=== PATIENT | female | born 1960 | race Caucasian/White ===

== ENCOUNTER → 2020-11-16 10:44 | Outpatient (BNVA) | payer SELFPAY | PROVIDERS: Family Provider Nurse Practitioner Family; PCP Nurse Practitioner Family; Visit Provider Nurse Practitioner Family | DX: S69.91XA Unspecified injury of right wrist, hand and finger(s), initial encounter (principal); E11.65 Type 2 diabetes mellitus with hyperglycemia; E78.5 Hyperlipidemia, unspecified; J30.2 Other seasonal allergic rhinitis; I10 Essential (primary) hypertension; X58.XXXA Exposure to other specified factors, initial encounter | CPT/HCPCS: 73130 ==

== ENCOUNTER 2020-12-21 14:53 | Outpatient (CLI) | payer SELFPAY ==
--- NOTE | 2020-12-21 15:01 | XR_ITS ---
WS: [id number] Right hand, 3 views, 12/21/2020 Clinical Data: R HAND PAIN Comparison: Right hand, 11/16/2020. Findings: The right second and third finger show partial amputation. Only the proximal two thirds of the right-sided finger proximal phalanx remains. The base of the right third middle phalanx remains. As osteoarthritic changes of the right fourth knee IP joint with flexion deformity. The remainder of the hand shows no abnormalities. No new fractures or dislocations are seen. The soft tissues are norm al. XR/XR hand RT min 3V* [id number] Impression: 1. 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 2. 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
== END 2020-12-21 14:54 | disposition home or self-care (01) ==
LOC: RAD 14:59
PROVIDERS: PCP Nurse Practitioner Family; Visit Provider Orthopaedic Surgery
DX: M79.641 Pain in right hand (principal); Z89.021 Acquired absence of right finger(s); M19.041 Primary osteoarthritis, right hand
CPT/HCPCS: 73130

== ENCOUNTER 2021-06-25 08:52 | Outpatient (CLI) | payer SELFPAY ==
--- NOTE | 2021-06-25 09:30 | USCV_ITS ---
Bridgett Cantor Age: 60 Gender: F : 1960 Exam Date: 06/25/2021 09:03 Ordering Phys: Jose R Mathews MD ([email or web address]) Technologist: ERICKA Exam Location: [facility] [place] Indication: DYSPNEA BP: 124 / 79 HR: 96 Rhythm: Sinus Technical Quality: Technically difficult study MEASUREMENTS (Male / Female) Normal Values 2D ECHO RV Chamber Size 2.7 cm LVOT Diameter 2.0 cm LA Diameter 2.2 cm LA Width 3.4 cm LA Height 2.8 cm RA Width 3.3 cm RA Height 3.2 cm Aorta at Sinotubular Diameter 2.2 cm M-MODE Aortic Annulus Diameter 2.6 cm LA Ao Ratio MM 0.9 DOPPLER AV Peak Velocity 81.0 cm/s LVOT Peak Velocity 57.0 cm/s AV Area Cont Eq vti 2.5 cm squared AV Area Cont Eq pk 2.2 cm squared TR Peak Velocity 220.0 cm/s TR Peak Gradient 19.4 mmHg TV Peak E Velocity 50.0 cm/s Right Atrial Pressure 3.0 mmHg Pulmonary Artery Systolic Pressu 22.4 mmHg PV Peak Velocity 76.0 cm/s RV Acceleration Time 0.1 s RV Ejection Time 0.3 s RV AcT/ET 0.4 FINDINGS Left Ventricle Normal left ventricular cavity size. Normal left ventricular systolic function. Left ventricular ejection fraction is estimated at 55-60 %. Although no diagnostic regional wall motion abnormality could be identified, this possibility cannot be completely excluded. Abnormal septal motion. Right Ventricle Normal right ventricular size and systolic function. Right Atrium Right atrium not well visualized. Left Atrium Left atrium not well visualized. Probably normal left atrial size. Mitral Valve Mitral valve not well visualized. No mitral valve stenosis. No significant mitral valve regurgitation. Aortic Valve Aortic valve not well visualized. No aortic valve stenosis. Tricuspid Valve Tricuspid valve not well visualized. Pulmonic Valve Pulmonic valve not well visualized. Pericardium No pericardial effusion. Aorta Normal size aortic root. CONCLUSIONS 1. This is a technically difficult study. 2. Normal left ventricular cavity size and systolic function. Left ventricular ejection fraction is estimated at 55- 60 %. Although no diagnostic regional wall motion abnormality could be identified, this possibility cannot be completely excluded. Abnormal septal motion. 3. Repeat study with echo contrast is recoomended. 4. No prior similar studies to compare. Taya Sánchez MD (Electronically Signed) Final Date: 28 June 2021 09:46 S
== END 2021-06-25 08:53 | disposition home or self-care (01) ==
LOC: RAD 08:56
PROVIDERS: PCP Nurse Practitioner Family; Visit Provider Internal Medicine Cardiovascular Disease
DX: R06.00 Dyspnea, unspecified (principal); R07.89 Other chest pain
CPT/HCPCS: 93306

== ENCOUNTER → 2022-10-15 13:50 | Outpatient (BNVA) | payer SELFPAY | PROVIDERS: PCP Nurse Practitioner Family; Visit Provider Internal Medicine Cardiovascular Disease | DX: R00.2 Palpitations (principal); E78.5 Hyperlipidemia, unspecified; I10 Essential (primary) hypertension; S69.91XA Unspecified injury of right wrist, hand and finger(s), initial encounter; E11.65 Type 2 diabetes mellitus with hyperglycemia; X58.XXXA Exposure to other specified factors, initial encounter | CPT/HCPCS: 93005 ==

== ENCOUNTER 2023-05-06 14:29 | Outpatient (CLI) | payer SELFPAY ==
--- NOTE | 2023-05-06 14:45 | USCV_ITS ---
Bridgett Cantor Age: 62 Gender: F : 1960 Exam Date: 05/06/2023 14:50 Ordering Phys: Vinita Mcdonough PILE HEADER PILE HEADER Technologist: CT [place] [facility] [place]: swelling PROCEDURES: Venous duplex imaging was performed in only the right lower extremity. On the right side, the common femoral, superficial femoral, profunda femoral, popliteal, posterior tibial, greater saphenous veins and the peroneal trunk were identified and interrogated in the standard fashion. These veins were found to be easily compressible with spontaneous blood flow. No evidence of insufficiency or thrombus noted. FINDINGS: no dvt CONCLUSIONS No evidence of right lower extremity DVT. Hong Pettit MD (Electronically Signed) Final Date: 06 May 2023 16:28 S
== END 2023-05-06 14:30 | disposition home or self-care (01) ==
LOC: RAD 14:30
PROVIDERS: PCP Nurse Practitioner Family; Visit Provider Nurse Practitioner Family
DX: M79.604 Pain in right leg (principal)
CPT/HCPCS: 93971

== ENCOUNTER → 2023-05-29 18:14 | Outpatient (BNVA) | payer SELFPAY | PROVIDERS: PCP Nurse Practitioner Family; Visit Provider Family Medicine | DX: R31.0 Gross hematuria (principal) | CPT/HCPCS: 81003; 87086 ==

== ENCOUNTER → 2023-12-01 08:59 | Outpatient (BNVA) | payer MEDICAID, SELFPAY | PROVIDERS: PCP Nurse Practitioner Family; Visit Provider Nurse Practitioner Family | DX: E11.65 Type 2 diabetes mellitus with hyperglycemia (principal) | CPT/HCPCS: 80053; 80061; 82043; 82607; 83036; 83735; 84443; 85025 ==

== ENCOUNTER 2024-01-09 13:32 | Outpatient (CLI) | payer MEDICAID, SELFPAY ==
--- NOTE | 2024-01-09 14:00 | USCV_ITS ---
Bridgett Cantor Age: 63 Gender: F : 1960 Exam Date: 01/09/2024 13:39 Ordering Phys: Vinita Mcdonough OCCUPATIONAL THERAPY PROFESSOR Technologist: UMBERTO Exam Location: [facility] Indication: HISTORY: PROCEDURES: FINDINGS: The small saphenous vein on the left side was found to be dilated with echodensities in the lumen. The vein was found to be partially compressible. Small venous reflux was noted in the distal segment of the greater saphenous vein on the left side. The reflux time was 0.68 seconds. The vein segment was measuring 0.44 cm and at a depth of 0.88 ms centimeter. Common femoral, femoral, popliteal and the posterior tibial veins were found to be patent with a spontaneous blood flow. CONCLUSIONS 1. No evidence of DVT in the way above-mentioned identifiable veins. 2. Features of superficial vein thrombosis involving the small saphenous vein of the left side causing partial occlusion. 3. Significant venous reflux of greater than 500 ms(680 ms) was noted in the distal segment of the greater saphenous vein on the left side. However this segment was less than 1 cm deep from the surface. 4. No other significant venous reflux were noted in the other veins Dr Jose R Mathews MD [facility] (Electronically Signed) Final Date: 15 January 2024 07:54 S
== END 2024-01-09 13:33 | disposition home or self-care (01) ==
LOC: RAD 13:33
PROVIDERS: PCP Nurse Practitioner Family; Visit Provider Nurse Practitioner Family
DX: R60.0 Localized edema (principal); I87.2 Venous insufficiency (chronic) (peripheral)
CPT/HCPCS: 93971

== ENCOUNTER 2024-01-13 11:57 | Outpatient (CLI) | payer MEDICAID, SELFPAY ==
--- NOTE | 2024-01-13 12:15 | USCV_ITS ---
Bridgett Cantor Age: 63 Gender: F : 1960 Exam Date: 01/13/2024 12:12 Ordering Phys: Vinita Mcdonough PROTECTIVE CLOTHING ISSUER PROTECTIVE CLOTHING ISSUER Technologist: JU Exam Location: [facility] [place] Indication: RASH ANT LOWER LT LEG DM AND NON SMOKER Risk Factors: DM Previous Vascular Surgery: None RIGHT LEFT BP: 131.0 / 68.00 BP: 138.0/ 73.00 0 0 Waveform Velocity (cm/s) Velocity (cm/s) Waveform Iliac Prox 127.0 Biphasic Iliac Mid Biphasic 79.0 Iliac Distal 74.0 Biphasic E COMMERCE MARKETING ANALYST 84.0 Monophasic SFA Prox 73.0 Monophasic SFA Mid 133.0 Monophasic SFA Dist 103.0 Monophasic POP Monophasic 294.0 SPIKEMAKING SUPERVISOR 36.0 Monophasic DPA 19.0 Monophasic MAN 0.8 FINDINGS LT SPIKEMAKING SUPERVISOR 110 LT DPA 90 Resting MAN of 0.8 on the left side Elevated Doppler velocity of the left popliteal artery CONCLUSIONS 1. Abnormal resting MAN, suggestive of moderate peripheral artery disease on the left side. 2. Elevated Doppler velocity in the popliteal artery, suggestive of greater than 50% stenosis. Dr Jose R Mathews MD [facility] (Electronically Signed) Final Date: 14 January 2024 00:13 S
== END 2024-01-13 11:58 | disposition home or self-care (01) ==
LOC: RAD 11:57
PROVIDERS: PCP Nurse Practitioner Family; Visit Provider Nurse Practitioner Family
DX: I87.2 Venous insufficiency (chronic) (peripheral) (principal); R94.39 Abnormal result of other cardiovascular function study
CPT/HCPCS: 80053; 80061; 82043; 82607; 83036; 83735; 84443; 85025; 93926

== ENCOUNTER 2024-01-23 13:22 | Outpatient (CLI) | payer MEDICAID, SELFPAY ==
--- NOTE | 2024-01-23 13:36 | XR_ITS ---
WS: [id number] XR KUB [id number] REASON FOR EXAM: URETERAL EVAL FINDINGS: No free air or retroperitoneal air. Moderate amount of stool throughout the colon. No small bowel distention. No urinary tract calculi are identified. Moderate degenerative spondylosis in the lumbar spine. Moderate osteoarthritis in both hips. XR/XR KUB [id number] IMPRESSION: No acute abnormality. No urinary tract calculi.
--- NOTE | 2024-01-23 14:36 | US_ITS ---
WS: [id number] RENAL ULTRASOUND HISTORY: NEPHROLITHIASIS COMPARISON: None available. TECHNIQUE: 2-D and color Doppler imaging of the kidney submitted. Right kidney: 10.8 cm x 5.3 cm x 5.3 cm. Cortex: 1.0 cm Normal size kidney. Soft tissue thickening involving the superior pole measures 2.4 x 1.8 x 2.4 cm. R enal cell neoplasm needs to be excluded. Left kidney: 11.9 cm x 4.6 cm x 5.1 cm. Cortex: 1.0 cm Normal echogenicity with no hydronephrosis or mass. Aorta: Normal. Urinary Bladder: Normal distention. US/US renal BI* [id number] IMPRESSION: 1. No hydronephrosis. 2. Possible renal mass measures 2.4 x 1.8 x 2.4 cm versus pseudotumor. Recomme nd follow-up renal mass CT protocol.
== END 2024-01-23 13:23 | disposition home or self-care (01) ==
PROVIDERS: PCP Nurse Practitioner Family; Visit Provider Urology
DX: N20.0 Calculus of kidney (principal); M47.816 Spondylosis without myelopathy or radiculopathy, lumbar region; M16.0 Bilateral primary osteoarthritis of hip
CPT/HCPCS: 74018; 76770

== ENCOUNTER → 2024-03-02 14:57 | Outpatient (BNVA) | payer MEDICAID, SELFPAY | PROVIDERS: PCP Nurse Practitioner Family; Visit Provider Nurse Practitioner Family | DX: S81.801A Unspecified open wound, right lower leg, initial encounter (principal); E11.65 Type 2 diabetes mellitus with hyperglycemia; X58.XXXA Exposure to other specified factors, initial encounter | CPT/HCPCS: 80053; 80061; 81000; 82607; 83036; 85025; 87070; 87075; 87205 ==

== ENCOUNTER 2024-03-10 16:57 | Outpatient (CLI) | payer MEDICAID, SELFPAY ==
--- NOTE | 2024-03-10 17:15 | CTR_ITS ---
PROCEDURE INFORMATION: Exam: CT Abdomen And Pelvis Without And With Contrast Exam date and time: 03/10/2024 6:22 PM Age: 63 years old Clinical indication: Abdominal pain; Generalized; Prior surgery; Surgery date: 6+ months; Surgery type: Gb, stent, kidney stone; Additional info: R10.9 - unspecified abdominal pain TECHNIQUE: Imaging protocol: Computed tomography of the abdomen and pelvis without and with contrast. Radiation optimization: All CT scans at this facility use at least one of these dose optimization techniques: automated exposure control; mA and/or kV adjustment per patient size (includes targeted exams where dose is matched to clinical indication); or iterative reconstruction. Contrast material: OMNIPAQUE 350; Contrast volume: 100 ml; Contrast route: INTRAVENOUS (IV); COMPARISON: CR XR KUB [id number] 01/23/2024 1:44 PM RADIATION DOSE METRICS: Total DLP (mGy-cm): 1248.47 FINDINGS: Liver: Normal. No mass. Gallbladder and biliary ducts: There has been a cholecystectomy. Pancreas: Normal. No ductal dilation. Spleen: Normal. No splenomegaly. Adrenal glands: Normal. No mass. Kidneys and ureters: There is mild right hydroureteronephrosis. No obstructing ureteral mass or calcification. Stomach and bowel: Colonic diverticula are present although there are no CT findings to suggest diverticulitis. No bowel obstruction. Appendix: The appendix is visualized and appears normal. Intraperitoneal space: Unremarkable. No free air. No significant fluid collection. Vasculature: Unremarkable. No abdominal aortic aneurysm. Lymph nodes: Unremarkable. No enlarged lymph nodes. Urinary bladder: Unremarkable as visualized. Reproductive: Unremarkable as visualized. Bones/joints: Degenerative change is identified in the spine. There is no evidence for acute fracture or malalignment. Soft tissues: Unremarkable. CT/CT abdomen pelvis wo/w [id number] IMPRESSION: There is mild right hydroureteronephrosis which may be secondary to a recently passed stone versus pyelonephritis.Clinical correlation is advised.
[2024-03-10 18:23] LABS: Glomerular Filtration Rate 41.6 mL/min (90-130)
[2024-03-10] MEDS: iohexol 350 mg/mL 500 mL Btl (per mL) IV (18:29)
== END 2024-03-10 16:58 | disposition home or self-care (01) ==
LOC: RAD 16:58
PROVIDERS: PCP Nurse Practitioner Family; Visit Provider Nurse Practitioner Family
DX: N13.30 Unspecified hydronephrosis (principal); R10.9 Unspecified abdominal pain; R31.9 Hematuria, unspecified; N28.89 Other specified disorders of kidney and ureter; Z90.49 Acquired absence of other specified parts of digestive tract
CPT/HCPCS: 74178; 82565; 84520

== ENCOUNTER → 2024-03-16 10:59 | Outpatient (BNVA) | payer MEDICAID, SELFPAY | PROVIDERS: PCP Nurse Practitioner Family; Visit Provider Nurse Practitioner Family | DX: D72.829 Elevated white blood cell count, unspecified (principal) | CPT/HCPCS: 85025 ==

== ENCOUNTER → 2024-04-01 13:18 | Outpatient (BNVA) | payer MEDICAID, SELFPAY | PROVIDERS: PCP Nurse Practitioner Family; Visit Provider Nurse Practitioner Family | DX: D72.829 Elevated white blood cell count, unspecified (principal); N18.32 Chronic kidney disease, stage 3b | CPT/HCPCS: 82565; 85025 ==

== ENCOUNTER → 2024-04-14 15:41 | Outpatient (BNVA) | payer MEDICAID, SELFPAY | PROVIDERS: PCP Nurse Practitioner Family; Visit Provider Nurse Practitioner Family | DX: L03.116 Cellulitis of left lower limb (principal) | CPT/HCPCS: 87070; 87075; 87205 ==

== ENCOUNTER 2024-06-11 06:50 | Outpatient (CLI) | payer MEDICAID, SELFPAY ==
[2024-06-11 07:17] LABS: Basophils # 0.1 10^3/uL (0.0-0.1); Basophils % 0.6 %; Eosinophils # 0.4 10^3/uL (0.0-0.8); Hematocrit 41.1 % (36-47); Lymphocytes # 2.7 10^3/uL (0.8-4.8); Lymphocytes % 28.6 %; Mean Corpuscular HGB Conc 31.9 g/dL (30-55); Mean Corpuscular Hemoglobin 29.8 pg (27-33); Mean Corpuscular Volume 93.4 fl (85-98); Mean Platelet Volume 10.9 fL (7.4-10.4); Monocytes # 0.8 10^3/uL (0.2-0.9); Neutrophils # 5.36 10^3/uL (1.8-7.7); Neutrophils % 57.5 %; Nucleated Red Blood Cells % 0.2 %; Platelet Count 159 10^3/cmm (157-399); Red Cell Distribution Width 14.7 % (12.1-15.1); White Blood Count 9.33 10^3/uL (3.29-11.43)
[2024-06-11 07:34] LABS: Anion Gap 16.2 (5-19); Blood Urea Nitrogen 27 mg/dL (8-23); Calcium 9.5 mg/dL (8.5-10.5); Carbon Dioxide 25 mmol/L (22-29); Chloride 105 mmol/L (98-107); Glomerular Filtration Rate 41.6 mL/min (90-130); Glucose 125 mg/dL (65-115); Osmolality Calculated 301 mOsm/kg (285-295); Potassium 4.2 mmol/L (3.5-5.1); Sodium 142 mmol/L (136-145)
== END 2024-06-11 06:51 | disposition home or self-care (01) ==
PROVIDERS: PCP Nurse Practitioner Family; Referring Provider Thoracic Surgery (Cardiothoracic Vascular Surgery); Visit Provider Thoracic Surgery (Cardiothoracic Vascular Surgery)
DX: E11.65 Type 2 diabetes mellitus with hyperglycemia (principal); E11.622 Type 2 diabetes mellitus with other skin ulcer; L98.499 Non-pressure chronic ulcer of skin of other sites with unspecified severity
CPT/HCPCS: 36415; 80048; 85025

== ENCOUNTER 2024-06-11 09:03 | Outpatient (CLI) | payer MEDICAID, SELFPAY ==
--- NOTE | 2024-06-11 09:15 | CT_ITS ---
WS: [id number] CT ANGIOGRAPHY OF THE ABDOMINAL AORTA WITH RUNOFF TO THE ANKLES HISTORY: Decreased blood flow to LLE TECHNIQUE: Arterial injection is performed during imaging to evaluate the aorta and runoff vessels to the ankles. MIP and volume rendering imaging has also been performed. All images are reviewed. All C T scans at [facility] use at least one of these dose optimization techniques: automated exposu re control; mA and/or kV adjustment per patient size (includes targeted exams where dose is matched t o clinical indication); or iterative reconstruction. Contrast: Omnipaque 350; 100 mL IV. DLP: 1592.03 mGy.cm COMPARISON: None available. Abdominal aorta: Good opacification abdominal aorta. There is scattered plaque with no aneurysm. Good opacification of the mesenteric arteries although there are foci of plaque. Normal size main renal a rteries. Tiny accessory renal arteries are also present. Inferior mesenteric artery is patent. RIGHT lower extremity: Calcified plaque continues into the RIGHT common iliac artery. Stenosis less t gutierrez 50%. Internal and external iliac arteries are both patent with greater plaque in the internal juan carlos ac artery. Multifocal areas of stenosis common iliac artery. High-grade stenosis of 70%. SFA and deep profundus are intact with scattered calcification. No occlusion through the popliteal artery. 50% st enosis mid SFA. 60% stenosis distal SFA. Tibioperoneal trunk is patent. Scattered plaque and small ca liber runoff to the ankles. Poorly visualized peroneal artery at the ankle. Best runoff to the ankle is via the posterior tibial artery. LEFT lower extremity: Dense calcified plaque common iliac artery. High-grade stenosis proximal LEFT i nternal iliac artery. External iliac artery is patent. Less than 50% stenosis common femoral artery. Proximal deep profunda and SFA are intact. Beginning in the proximal SFA there is multifocal areas of stenosis due to scattered calcified plaque. Mid SFA stenosis estimated at 70%. There is several area s of stenosis estimated near 70%. Additional stenoses towards the distal SFA through Aristeo's canal. Near complete occlusion of the distal SFA just proximal to the popliteal artery. Three-vessel runoff to the ankle is limited. Poor visualization of the peroneal and anterior tibial arteries. Best runoff is via the posterior tibial artery. Calcified granuloma medial LEFT lower lobe. Small hiatal hernia. Prior cholecystectomy. Cirrhotic corine er. No adrenal mass. No renal obstruction. Mild diffuse cortical thinning. No GI tract obstruction. N o ascites or adenopathy. L4 anterolisthesis by [address]/CT angio abd aorta runof [id number] IMPRESSION: 1. No aortic aneurysm. 2. RIGHT femoral artery stenosis, 70%. 3. Mid RIGHT SFA stenoses from 50 to 60%, multifocal. 4. LEFT SFA multifocal stenoses. Mid SFA stenosis 70% with near complete occlu leigh in distal Aristeo's canal. 5. Bilateral three-vessel runoff to the ankles is noted. Small caliber vessels . Most limited runoff is via the peroneal arteries. Best runoff via the posteri or tibial arteries. 6. Prior cholecystectomy. 7. Cirrhotic liver.
[2024-06-11] MEDS: iohexol 350 mg/mL 500 mL Btl (per mL) IV (10:39)
== END 2024-06-11 09:04 | disposition home or self-care (01) ==
PROVIDERS: PCP Nurse Practitioner Family; Visit Provider Thoracic Surgery (Cardiothoracic Vascular Surgery)
DX: E11.622 Type 2 diabetes mellitus with other skin ulcer (principal); L98.499 Non-pressure chronic ulcer of skin of other sites with unspecified severity; E11.65 Type 2 diabetes mellitus with hyperglycemia; I73.9 Peripheral vascular disease, unspecified; I70.8 Atherosclerosis of other arteries; Z90.49 Acquired absence of other specified parts of digestive tract; I70.0 Atherosclerosis of aorta; J84.10 Pulmonary fibrosis, unspecified; K44.9 Diaphragmatic hernia without obstruction or gangrene; R93.2 Abnormal findings on diagnostic imaging of liver and biliary tract; R93.7 Abnormal findings on diagnostic imaging of other parts of musculoskeletal system; R93.89 Abnormal findings on diagnostic imaging of other specified body structures
CPT/HCPCS: 75635

== ENCOUNTER 2024-07-11 12:07 | Emergency (ER) | payer MEDICAID, SELFPAY ==
[2024-07-11 12:45] VITALS: BP 141/73; PULSE 96; RESP 18; TEMP 36.7; O2SAT 96; BMI 31.9
--- NOTE | 2024-07-11 13:14 | CTR_ITS ---
PROCEDURE INFORMATION: Exam: CT Abdomen And Pelvis Without Contrast Exam date and time: 07/11/2024 1:46 PM Age: 63 years old Clinical indication: Abdominal pain; Prior surgery; Surgery date: 6+ months; Surgery type: Gb kidney stone; Additional info: Flank pain TECHNIQUE: Imaging protocol: Computed tomography of the abdomen and pelvis without contrast. Radiation optimization: All CT scans at this facility use at least one of these dose optimization techniques: automated exposure control; mA and/or kV adjustment per patient size (includes targeted exams where dose is matched to clinical indication); or iterative reconstruction. COMPARISON: CT abdomen pelvis wo/w [id number] 03/10/2024 6:22 PM RADIATION DOSE METRICS: Total DLP (mGy-cm): 797.13 FINDINGS: Lungs: Calcified granulomas in the left lower lobe. Liver: There are calcified granulomas in the liver. Gallbladder and biliary ducts: There has been a cholecystectomy. Pancreas: Normal. No ductal dilation. Spleen: There are multiple calcified granulomas of the spleen. Adrenal glands: Normal. No mass. Kidneys and ureters: 2 mm nonobstructing stone in the interpolar region of the left kidney. Moderate right hydroureteronephrosis. No obstructing urinary stone. There is no evidence of left hydronephrosis. Stomach and bowel: Unremarkable. No obstruction. No mucosal thickening. Appendix: No evidence of appendicitis. Intraperitoneal space: Unremarkable. No free air. No significant fluid collection. Vasculature: There are numerous benign phleboliths in the pelvis. Calcified atheromas of the visualized arteries. Lymph nodes: Unremarkable. No enlarged lymph nodes. Urinary bladder: Unremarkable as visualized. Reproductive: Unremarkable as visualized. Bones/joints: There are mild degenerative changes of the hip joints. The pubic symphysis demonstrates mild degenerative changes. There are mild degenerative changes of the sacroiliac joints. Bilateral L4-L5 facet joint arthropathy with mild anterolisthesis of L4 over L5. The lumbar spine demonstrates moderate degenerative changes at multiple levels. Soft tissues: Unremarkable. CT/CT abdomen pelvis wo con [id number] IMPRESSION: 1. No obstructing urinary stone. 2. Moderate right hydroureteronephrosis that might be related to recent passage of stone.
--- NOTE | 2024-07-11 13:44 | W.ED.BACK ---
HPI - Back Pain/Injury General: Chief Complaint: Back Pain/Injury Stated Complaint: side pain Time Seen by Provider: 07/11/24 13:09 History of Present Illness: 63-year-old female with a recent history of a large kidney stone that required lithotripsy and stent placement which has since been removed who presents emergency room today with flank pain. She is having right flank pain. Has not noticed any blood in her urine. She has urinary frequency and urgency with decreased urinary output. No fevers. No nausea or vomiting. No altered mental status. Related Data Home Medications ?Medication ?Instructions ?Recorded ?Confirmed aspirin 81 mg tablet,delayed 81 mg PO DAILY 05/20/19 07/11/24 release acetaminophen 500 mg capsule 500 mg PO Q6H PRN Pain 12/04/21 07/11/24 allopurinol 300 mg tablet 300 mg PO BID 07/11/24 07/11/24 atorvastatin 40 mg tablet 40 mg PO DAILY 07/11/24 07/11/24 benazepril 20 mg tablet 20 mg PO DAILY 07/11/24 07/11/24 bupropion HCl 150 mg 24 hr tablet, 150 mg PO QAM 07/11/24 07/11/24 extended release dapagliflozin propanediol 10 mg 10 mg PO QAM 07/11/24 07/11/24 tablet dulaglutide 0.75 mg/0.5 mL 0.75 mg SUBCUT Q7D 07/11/24 07/11/24 subcutaneous pen injector (Trulicity) glipizide 10 mg tablet, extended 10 mg PO DAILY 07/11/24 07/11/24 release 24 hr insulin glargine 100 unit/mL (3 45 unit SUBCUT BID 07/11/24 07/11/24 mL) subcutaneous pen (Lantus Solostar U-100 Insulin) loratadine 10 mg tablet 10 mg PO DAILY 07/11/24 07/11/24 Previous Rx's ?Medication ?Instructions ?Recorded mecobalamin (vitamin B12) 1,000 See Rx Instructions .Route 03/04/24 mcg disintegrating .COMPLEX #90 tabs tablet,sublingual metoprolol tartrate 50 mg tablet 75 mg (1.5 x 50 mg) PO BID #270 06/28/24 tabs ciprofloxacin HCl 500 mg tablet 500 mg PO BID 10 days #20 tabs 03/02/25 ondansetron 4 mg disintegrating 4 mg PO Q8H PRN nausea and 07/11/24 tablet vomiting #10 tabs Allergies Allergy/AdvReac Type Severity Reaction Status Date / Time Cephalosporins Allergy Unknown Verified 06/28/24 18:13 hydrochlorothiazide Allergy ALGY-Rash Verified 06/28/24 18:13 Review of Systems Narrative: Constitutional symptoms: Negative except as documented in HPI. Skin symptoms: Negative except as documented in HPI. Eye symptoms: Negative except as documented in HPI. ENMT symptoms: Negative except as documented in HPI. Respiratory symptoms: Negative except as documented in HPI. Cardiovascular symptoms: Negative except as documented in HPI. Gastrointestinal symptoms: Negative except as documented in HPI. Genitourinary symptoms: Negative except as documented in HPI. Musculoskeletal symptoms: Negative except as documented in HPI. Neurologic symptoms: Negative except as documented in HPI. Psychiatric symptoms: Negative except as documented in HPI. Endocrine symptoms: Negative except as documented in HPI. PFSH ED PFSH: Medical History Gout Current use of insulin Poor compliance Stage 4 chronic kidney disease Anxiety state Uncontrolled type 2 diabetes mellitus with hyperglycemia Hyperlipidemia Hypertension Surgical History History of amputation of finger History of cholecystectomy Family History Mother Anesthesia complication Diabetes Lung disease Father Clotting disorder Diabetes Stroke Sister CAD (coronary artery disease) later in life Cancer Diabetes Lung disease Stroke Brother CAD (coronary artery disease) Chronic kidney disease (CKD) Diabetes Other Hypertension Denies family history of Dementia Suicide Bleeding disorder Social History Smoking and tobacco/nicotine status: former use of tobacco/nicotine Quit status (tobacco/nicotine): has quit using Year quit tobacco: over 20 years ago Second hand smoke exposure: No Alcohol intake: never Substance/Drug Use: never Caregiver/support person: Yes Lives independently: Yes Household members: spouse Marital status: service: No Current occupational status: disabled Current gender identity: Female Special luca needs: No Physical Exam Narrative: EXAM NARRATIVE: General: Alert, no acute distress. Skin: Warm, dry. Head: Normocephalic, atraumatic. Neck: Supple, trachea midline. Eye: Extraocular movements are intact. Ears, nose, mouth and throat: Tacky oral mucosa Cardiovascular: Regular, Normal peripheral perfusion. Respiratory: Lungs are clear to auscultation, respirations are non-labored, breath sounds are equal, Symmetrical chest wall expansion. Gastrointestinal: Soft, Nontender, Non distended Musculoskeletal: Normal ROM, no deformity. Neurological: Alert and oriented, No focal neurological deficit observed. Psychiatric: Cooperative, appropriate mood & affect. Course Vital Signs: Vital signs: Vital Signs Temperature 98.0 F 07/11/24 12:45 Pulse Rate 96 07/11/24 12:45 Respiratory Rate 18 07/11/24 12:45 Blood Pressure 141/73 07/11/24 12:45 Pulse Oximetry 96 07/11/24 12:45 Oxygen Delivery Me thod Room Air 07/11/24 12:45 MDM - Back Pain/Injury Medical Decision Making Medical decision making: Differential diagnosis including but not limited to and based on the above HPI, review of systems and physical exam: Ureterolithiasis. Urinary tract infection. Appendicitis. Cholecystis. Musculoskeletal / back pain. Pyelonephritis Orders placed to evaluate differential diagnosis based on the above differential, HPI and physical exam Lab Review: Laboratory results were reviewed and interpreted by myself the emergency room physician. Mild leukocytosis. No anemia. Renal function is at or near her baseline at 28 1.4. Slightly more elevated. Urinalysis shows very concentrated urine and 25-40 whites. Treating her flank pain as a urinary tract infection/pyelonephritis. She has a cephalosporin allergy so giving Cipro here in the emergency room. CT of the abdomen pelvis: No obstructing urinary stones. She does have moderate right hydronephrosis. This is likely secondary to previous stone and stent placement. This was reviewed and interpreted by myself the emergency room physician. I also reviewed the radiology report. I reviewed the patient's medical record. Reexamination: Patient remained stable. No increased work of breathing. No altered mental status. No focal motor deficits. Assessment and plan: Urinary tract infection Flank pain Dehydration ? Normal saline bolus, IV Cipro, IV morphine and IV Zofran. - Discharged home - Discussed plan with patient. Answered any questions. - Evaluation and treatment of this problem were appropriate in the emergency setting. Labs 07/11/24 13:45 07/11/24 13:45 Radiology Impressions Abdomen/Pelvis CT 07/11/24 13:14 IMPRESSION: 1. No obstructing urinary stone. 2. Moderate right hydroureteronephrosis that might be related to recent passage of stone. Laboratory Results WBC 13.12 10^3/uL (3.29-11.43) H 07/11/24 13:45 RBC 4.57 10^6/uL (3.85-5.65) 07/11/24 13:45 Hgb 13.80 g/dL (11.27-16.99) 07/11/24 13:45 Hct 43.7 % (36-47) 07/11/24 13:45 MCV 95.6 fl (85-98) 07/11/24 13:45 MCH 30.2 pg (27-33) 07/11/24 13:45 MCHC 31.6 g/dL (30-55) 07/11/24 13:45 RDW 15.2 % (12.1-15.1) H 07/11/24 13:45 Plt Count 173 10^3/cmm (157-399) 07/11/24 13:45 MPV 11.4 fL (7.4-10.4) H 07/11/24 13:45 Neut % (Auto) 85.0 % 07/11/24 13:45 Lymph % (Auto) 8.8 % 07/11/24 13:45 [place] % (Auto) 5.0 % 07/11/24 13:45 Eos % (Auto) 0.2 % 07/11/24 13:45 Baso % (Auto) 0.5 % 07/11/24 13:45 Neut # (Auto) 11.15 10^3/uL (1.8-7.7) H 07/11/24 13:45 Lymph # (Auto) 1.2 10^3/uL (0.8-4.8) 07/11/24 13:45 [place] # (Auto) 0.7 10^3/uL (0.2-0.9) 07/11/24 13:45 Eos # (Auto) 0.0 10^3/uL (0.0-0.8) 07/11/24 13:45 Baso # (Auto) 0.1 10^3/uL (0.0-0.1) 07/11/24 13:45 Nucleated RBC % (auto) 0 % 07/11/24 13:45 Nucleated RBCs # 0.0 /100WBC 07/11/24 13:45 Sodium 139 mmol/L (136-145) 07/11/24 13:45 Potassium 5.0 mmol/L (3.5-5.1) 07/11/24 13:45 Chloride 106 mmol/L (98-107) 07/11/24 13:45 Carbon Dioxide 24 mmol/L (22-29) 07/11/24 13:45 Anion Gap 14.0 (5-19) 07/11/24 13:45 BUN 28 mg/dL (8-23) H 07/11/24 13:45 Creatinine 1.4 mg/dL (0.5-0.9) H 07/11/24 13:45 GFR Calculation 38.2 mL/min (90-130) L 07/11/24 13:45 Glucose 221 mg/dL (65-115) H 07/11/24 13:45 Calculated Osmolality 300 mOsm/kg (285-295) H 07/11/24 13:45 Calcium 9.6 mg/dL (8.5-10.5) 07/11/24 13:45 Total Bilirubin 0.7 mg/dL (0.15-1.2) 07/11/24 13:45 AST 20 U/L (0-32) 07/11/24 13:45 ALT 19 U/L (0-33) 07/11/24 13:45 Alkaline Phosphatase 145 U/L (35-105) H 07/11/24 13:45 Total Protein 7.4 g/dL (6.6-8.7) 07/11/24 13:45 Albumin 3.8 g/dL (3.5-5.2) 07/11/24 13:45 Globulin 3.6 g/dL (1.3-4.6) 07/11/24 13:45 Lipase 53 U/L (13-60) 07/11/24 13:45 Urine Color Yellow (Yellow) 07/11/24 14:17 Urine Appearance Clear (CLEAR) 07/11/24 14:17 Urine pH 5.0 (5-7) 07/11/24 14:17 Ur Specific [place] 1.030 (1.005-1.030) 07/11/24 14:17 Urine Protein Negative (Negative) 07/11/24 14:17 Urine Glucose (UA) 3+ (Normal) H 07/11/24 14:17 Urine Ketones Negative (Negative) 07/11/24 14:17 Urine Blood 1+ (Negative) A 07/11/24 14:17 Urine Nitrate Negative (Negative) 07/11/24 14:17 Urine Bilirubin Negative (Negative) 07/11/24 14:17 Urine Urobilinogen 0.2 mg/dL (Negative) 07/11/24 14:17 Ur Leukocyte Esterase Trace (Negative) A 07/11/24 14:17 Urine RBC 0-4 /hpf (0-2) H 07/11/24 14:17 Urine WBC 25-40 /hpf (0-5) H 07/11/24 14:17 Ur Squamous Epith Cells 5-10 /hpf (0-5) H 07/11/24 14:17 Calcium Oxalate Crystal 0-4 /hpf H 07/11/24 14:17 Amorphous Sediment Not Reportable 07/11/24 14:17 Urine Bacteria Trace /hpf (NONE) 07/11/24 14:17 All radiology interpretation(s) finalized by discharge Discharge Plan Discharge Patient Disposition: Home Clinical Impression: Hydronephrosis, Dehydration UTI (urinary tract infection) Qualifiers: Urinary tract infection type: site unspecified Hematuria presence: with hematuria Qualified Code(s): N39.0 - Urinary tract infection, site not specified Condition: Stable Prescriptions: New ciprofloxacin HCl 500 mg tablet 500 mg PO BID 10 Days Qty: 20 0RF ondansetron 4 mg tablet,disintegrating 4 mg PO Q8H PRN (Reason: nausea and vomiting) Qty: 10 0RF No Action aspirin 81 mg tablet,delayed release (DR/EC) 81 mg PO DAILY metoprolol tartrate 50 mg tablet 75 mg PO BID Qty: 270 3RF acetaminophen 500 mg capsule 500 mg PO Q6H PRN (Reason: Pain) mecobalamin (vitamin B12) 1,000 mcg tablet,disintegrating See Rx Instructions .ROUTE .COMPLEX Qty: 90 1RF Dose Instruction: place tablet UNDER TONGUE and allow TO dissolve FOR at least 30 seconds before swallowing take ONCE daily Rx Instructions: place tablet UNDER TONGUE and allow TO dissolve FOR at least 30 seconds before swallowing take ONCE daily atorvastatin 40 mg tablet 40 mg PO DAILY Rx Instructions: TAKE ONE TABLET BY MOUTH DAILY glipizide 10 mg tablet extended release 24hr 10 mg PO DAILY Rx Instructions: TAKE ONE TABLET BY MOUTH DAILY benazepril 20 mg tablet 20 mg PO DAILY Rx Instructions: TAKE ONE TABLET BY MOUTH EVERY DAY allopurinol 300 mg tablet 300 mg PO BID Rx Instructions: TAKE ONE TABLET BY MOUTH TWICE DAILY loratadine 10 mg tablet 10 mg PO DAILY Rx Instructions: TAKE ONE TABLET BY MOUTH EVERY DAY bupropion HCl 150 mg tablet extended release 24 hr 150 mg PO QAM Rx Instructions: TAKE ONE TABLET BY MOUTH EVERY MORNING insulin glargine [Lantus Solostar U-100 Insulin] 100 unit/mL (3 mL) insulin pen 45 unit SUBCUT BID Rx Instructions: INJECT 45 UNITS SUBCUTANEOUSLY TWICE DAILY dapagliflozin propanediol 10 mg tablet 10 mg PO QAM Rx Instructions: TAKE ONE TABLET BY MOUTH EVERY MORNING Trulicity 0.75 mg/0.5 mL pen injector 0.75 mg SUBCUT Q7D Rx Instructions: inject 0.75mg SUBCUTANEOUSLY ONCE WEEKLY Discharge Orders: Discharge ED (Routine); Ordered 07/11/24 Ordered By: Ines Varner Referrals: Vinita Mcdonough FNP [Primary Care Provider] - Discharge Diet: Usual diet Discharge Activity: Increase activity as tolerated Patient Instructions: Opioid Safety, Pain Management Activity Restrictions/Additional Instructions: You need to follow-up with your primary care provider very soon, and perhaps discussed with him if you need to follow-up with urology again for persistent hydronephrosis after the last kidney stone. If you do not improve or worsen with the antibiotics that you are on go see your primary care provider or return to the emergency room. Thank you for choosing [facility] for your healthcare needs today. Please realize this is an emergency room and that we are providing you with a medical screening exam and this may not be complete and all inclusive of all the testing and or work up that you may need to determine your ailment or severity of your illness. You have been screened and evaluated and felt safe for discharge. Health conditions do change or evolve sometimes and as such it is important that you follow up with your Primary Doctor to be re checked, 3-5 days is a general good time frame for follow up. You are always welcome to return to the ED for re assessment if your symptoms are worsening or you have new concerns Print Language: Kittitian Coding Level of Care Code ED Kennel Staff Member for Raza Sen
[2024-07-11 13:51] LABS: Basophils # 0.1 10^3/uL (0.0-0.1); Basophils % 0.5 %; Eosinophils % 0.2 %; Hematocrit 43.7 % (36-47); Lymphocytes # 1.2 10^3/uL (0.8-4.8); Lymphocytes % 8.8 %; Mean Corpuscular HGB Conc 31.6 g/dL (30-55); Mean Corpuscular Hemoglobin 30.2 pg (27-33); Mean Corpuscular Volume 95.6 fl (85-98); Mean Platelet Volume 11.4 fL (7.4-10.4); Monocytes # 0.7 10^3/uL (0.2-0.9); Neutrophils # 11.15 10^3/uL (1.8-7.7); Nucleated Red Blood Cells % 0 %; Platelet Count 173 10^3/cmm (157-399); Red Blood Count 4.57 10^6/uL (3.85-5.65); Red Cell Distribution Width 15.2 % (12.1-15.1); White Blood Count 13.12 10^3/uL (3.29-11.43)
[2024-07-11 14:13] LABS: Alanine Aminotransferase 19 U/L (0-33); Albumin Level 3.8 g/dL (3.5-5.2); Alkaline Phosphatase 145 U/L (35-105); Aspartate Amino Transferase 20 U/L (0-32); Blood Urea Nitrogen 28 mg/dL (8-23); Calcium 9.6 mg/dL (8.5-10.5); Carbon Dioxide 24 mmol/L (22-29); Chloride 106 mmol/L (98-107); Creatinine Clr Calc Pharmacy 45.9898; Globulin 3.6 g/dL (1.3-4.6); Glomerular Filtration Rate 38.2 mL/min (90-130); Glucose 221 mg/dL (65-115); Lipase 53 U/L (13-60); Osmolality Calculated 300 mOsm/kg (285-295); Sodium 139 mmol/L (136-145); Total Bilirubin 0.7 mg/dL (0.15-1.2); Total Protein 7.4 g/dL (6.6-8.7)
[2024-07-11 14:17] VITALS: BP 162/80; PULSE 96; O2SAT 96
[2024-07-11 14:27] LABS: Bilirubin Urine Negative (Negative); Blood Urine 1+ (Negative); Glucose Urine UA 3+ (Normal); Ketones Urine Negative (Negative); Leukocyte Esterase Urine Trace (Negative); Nitrate Urine Negative (Negative); Protein Urine Negative (Negative); Urine Appearance Clear (CLEAR); Urine Color Yellow (Yellow); Urobilinogen Urine 0.2 mg/dL (Negative)
[2024-07-11 14:45] LABS: Add Urine Microscopic? YES; Bacteria Urine TRACE /hpf; Calcium Oxalate Crystals Urine 0-4 /hpf; RBC Urine 0-4 /hpf (0-2); WBC Urine 25-40 /hpf (0-5)
[2024-07-11 15:30] VITALS: BP 127/86; PULSE 97; O2SAT 98
[2024-07-11] MEDS: sodium chloride 0.9% 1,000 ML 999 ML IV (16:02)
[2024-07-11] MEDS: ondansetron 2 mg/ML SDV 2 mL 4 MG IVP (16:03)
[2024-07-11 16:04] VITALS: RESP 16; O2SAT 96
[2024-07-11] MEDS: morphine 4 mg/mL SDV 1 mL IVP (16:04)
[2024-07-11] MEDS: ciprofloxacin 400 MG/200 ML PREMIX 200 MG IV (16:06)
[2024-07-11 17:13] VITALS: BP 147/77; PULSE 104; O2SAT 91
== END 2024-07-11 17:13 | disposition home or self-care (01) ==
PROVIDERS: Emergency Medicine; Emergency Provider Emergency Medicine; PCP Nurse Practitioner Family
DX: N13.30 Unspecified hydronephrosis (principal); E86.0 Dehydration; N39.0 Urinary tract infection, site not specified; Z79.82 Long term (current) use of aspirin; Z79.4 Long term (current) use of insulin; Z87.891 Personal history of nicotine dependence; E78.5 Hyperlipidemia, unspecified; E11.22 Type 2 diabetes mellitus with diabetic chronic kidney disease; I12.9 Hypertensive chronic kidney disease with stage 1 through stage 4 chronic kidney disease, or unspecified chronic kidney disease; N18.4 Chronic kidney disease, stage 4 (severe)
CPT/HCPCS: 36415; 74176; 80053; 81001; 83690; 85025; 96374; 96375; 99285; J0744; J2270; J2405; J7030

== ENCOUNTER 2024-07-20 06:51 | Outpatient (CLI) | payer MEDICAID, SELFPAY ==
[2024-07-20 07:30] VITALS: BP 143/83; PULSE 105; RESP 18; TEMP 36.7; O2SAT 95; BMI 32.2
[2024-07-20] MEDS: diphenhydrAMINE 50 mg Capsule PO (08:01)
--- NOTE | 2024-07-20 08:02 | PC.NURSE ---
NS bolus Received verbal orders from Dr. Lala to give 500NS bolus over 1 hr then resume NS at 100ml/hr. Bolus started at this time with NS bag pulled in dental laboratory worker for procedure.
[2024-07-20 08:10] LABS: Blood Urea Nitrogen 33 mg/dL (8-23); Calcium 9.4 mg/dL (8.5-10.5); Carbon Dioxide 19 mmol/L (22-29); Chloride 108 mmol/L (98-107); Creatinine Clr Calc Pharmacy 39.0135; Glomerular Filtration Rate 32.8 mL/min (90-130); Glucose 135 mg/dL (65-115); Osmolality Calculated 299 mOsm/kg (285-295); Sodium 140 mmol/L (136-145)
[2024-07-20 08:12] LABS: Anion Gap 17.6 (5-19); Potassium 4.6 mmol/L (3.5-5.1)
--- NOTE | 2024-07-20 08:25 | PC.NURSE ---
Elevated creatinine Creatinine this am 1.6. Dr. Lala notified of results and postponing procedure. Plan is to direct admit overnight and do procedure at 0600 Friday am. IV removed . Pt educated on importance of increasing fluid intake and updated on plan. Verbalized understanding.
== END 2024-07-20 06:52 | disposition home or self-care (01) ==
LOC: CCL 06:52
PROVIDERS: PCP Nurse Practitioner Family; Visit Provider Internal Medicine Cardiovascular Disease
DX: Z53.09 Procedure and treatment not carried out because of other contraindication (principal); R79.89 Other specified abnormal findings of blood chemistry
CPT/HCPCS: 80048; J1644; J2250; J3010; J7030; J9999; Q0163

== ENCOUNTER 2024-07-22 16:03 | Observation (INO) | payer MEDICAID, SELFPAY ==
--- OUTSIDE RECORDS SUMMARY | 2024-07-22 16:06 | XMS_ITS ---
Author Organization [facility] Address [address] [facility] [place] [id number] Care Team Providers Care Dance Instructor Name Role Phone Ward Atwood Unavailable [phone] REASON FOR VISIT Cysto R Ureteral Stent Placement @ [phone] Encounters Encounter Location Date Provider Diagnosis [facility] [address] [facility] [address] [place] [address] 10/23/2023 Ward Atwood Plan Of Treatment No Information Progress Notes * Bridgett ACNTORDOB: 3 (63 yo F)Acc No.[id number]:10/23/2023 Patient:?Bridgett CANTOR Provider:?Ward Atwood MD :1960???Age:62 Y???Sex:Female D ate:10/23/2023 Address:[address] [place] [address], [facility] * * Electronic signature of Naveed Atwood MD on 07/22/2024 at 04:06 PM CDT Sign off status: Pending * Provider:?Ward Atwood MD Date:?10/10 Generated for Gaurang tovar/Kei/eTransmitting on:?07/22/2024 04:06 PM CDT
--- OUTSIDE RECORDS SUMMARY | 2024-07-22 16:06 | XMS_ITS ---
Author Organization [facility] Address [address] [place] [address] Care Team Providers Care Observer Electrical Prospecting Name Role Phone Phyllis De Leon Primary Care Provider WARD Nelson [phone] REASON FOR VISIT 4-6 wks w/ ua/ct Encounters Encounter Location Date Provider Diagnosis [facility] [address] [place] [address] 03/09/2024 WARD ATWOOD Plan Of Treatment No Information Progress Notes * Bridgett CANTORDOB: [birth year] (63 yo F)Acc No.[id number]:03/09/2024 Progress Notes Patient:?Bridgett CANTOR Provider:?Ward Atwood MD :1960???Age:63 Y???Sex:Female D ate:03/09/2024 Address:[address] [place], [place] [id number] Pcp:Phyllis De Leon Subjective: * Chief Complaints: * ???1. 4-6 wks w/ ua/ct. * Medical History:? Objective: * Vitals:? Assessment: Plan: * Treatment: * Billing Information: * Visit Code:? * Procedure Codes:? * Electronic signature of PB ATWOOD MD on 07/22/2024 at 04:06 PM CDT Sign off status: Pending * Provider:?Ward Atwood MD Date:? Generated for Gaurang tovar/Kei/Jonnathan on:?07/22/2024 04:06 PM SUNDAR
--- OUTSIDE RECORDS SUMMARY | 2024-07-22 16:06 | XMS_ITS | Clinical Summary ---
Author Organization [facility] Address [address] [place] [address] Phone Care Team Providers Care Door Liner Helper Name Role Phone Unavailable Primary Care Provider Unavailabl e Social History Tobacco Use Types Packs/Day Years Used Date Smoking Tobacco: Never Assessed Comments Unknown Sex and Gender Information Value Date Recorded Sex Assigned at Not on file Legal Sex Female 3:27 PM CDT Gender Identity Not on file Sexual Orientation Not on file Plan of Treatment Health Maintenance Due Date Last Done Comments DTAP/TDAP/TD VACCINES (1 - Tdap) 1981 CERVICAL CANCER SCREENING 1992 BREAST CANCER SCREENING 2002 COLORECTAL SCREENING 11/12/2007 Colorectal Cancer Screening 11/12/2007 FIT-DNA Q 3 years 11/12/2007 FIT/FOBT Q 1 year 11/12/2007 Flex Sig/CT Colonography Q 5 years 11/12/2007 ZOSTER VACCINE (1 of 2) 2012 INFLUENZA VACCINE (#1) 2023 RSV VACCINE (60+ or ) (1 - 1-dose 75+ series) 2037 PNEUMOCOCCAL VACCINE 0-49 YEARS Aged Out No longer eligible based on patient's age to complete this topic
--- OUTSIDE RECORDS SUMMARY | 2024-07-22 16:07 | XMS_ITS ---
Author Organization [facility] Address [address] [place] [place] [address] Care Team Providers Care Food And Beverage Checker Name Role Phone Phyllis De Leon Primary Care Provider JUAN JOSE Nelson Unavailable [phone] EUFEMIA GILLESPIE Unavailable [phone] REASON FOR VISIT PA for CT Encounters Encounter Location Date Provider Diagnosis [facility] [address] [facility] [place] [address] 02/06/2024 EUFEMIA GILLESPIE Plan Of Treatment No Information Progress Notes * Bridgett CANTORDOB: [birth year] (63 yo F)Acc No.[id number]:02/06/2024 Patient:?Bridgett CANTOR :1960???Age:63 Y???Sex:Female Address:[address] [place] [id number] * true * Date:? Generated for Gaurang tovar/Kei/eTransmitting on:?07/22/2024 04:06 PM CDT
--- OUTSIDE RECORDS SUMMARY | 2024-07-22 16:07 | XMS_ITS | Patient Health Record ---
Author Organization [facility], [facility] Address [address] [place] [address] Care Team Providers Care Director [place] [employer] Name Role Phone Phyllis De Leon Primary Care Provider UnavailJUAN JOSE Crockett Unavailable [phone] EUFEMIA GILLESPIE Unavailable [phone] FRAN BARKER Unavailable [phone] Allergies Allergen (clinical drug ingredient) Drug/Non Drug Allergy documented on EMR Reaction Allergy Type Onset Date Status Medicinal cephalosporin and acting as antibacterial agent (FN) Cephalosporins Unknown Drug Allergy Active Substance with sulfonamide structure and antibacterial mechanism of action (substance) Sulfa Antibiotics Unknown Drug Allergy Active Results Component Value Reference Range Notes Urinalysis, Routine Reviewed date:09/05/2023 02:44:21 PM Interpretation: Performing Lab: Notes/Report: Urine-Color Yellow Appearance Clear Glucose 3+ Bilirubin - Ketones - Specific [place] 1.015 Occult Blood - pH 6.0 Urine Protein - Urobilinogen,Semi-Qn 0.2 Nitrite, Urine - WBC Esterase - Urinalysis, Routine Reviewed date:11/04/2023 08:12:59 AM Interpretation: Performing Lab: Notes/Report: Urine-Color yellow Appearance clear Glucose 3+ Bilirubin - Ketones - Specific [place] 1.010 Occult Blood 3+ pH 6.0 Urine Protein trace Urobilinogen,Semi-Qn - Nitrite, Urine - WBC Esterase - BUN Proc NC Reviewed date:01/09/2024 10:48:24 AM Interpretation: Performing Lab: Notes/Report: BUN 26 7-21 MG/DL Testing perform ed at: [facility] [id number] [place] [address], [place] [address] CLIA ID [id number] Creat Proc NC Reviewed date:01/09/2024 10:48:24 AM Interpretation: Performing Lab: Notes/Report: Creat 1.09 .51-1.17 MG/DL A-zoaqqu-l-benzoquinone imine (NAPQI) is a metabolite of acetaminophen, NAPQI concentrations of apparoximately 10 mg/L correlation to toxic levels of acetaminophen demonstrates a greater than or equil to 10% change in results. NAPQI concentrations greater than this may lead to falsely depressed results for patient samples. Use of this assay is not recommended for patients undergoing treatment with phenindione, due to the potential for falsely depressed results. Testing performed at: [address] [place] [address] CLIA ID [id number] CBC Reflex Man Diff Reviewed date:10/28/2023 01:02:19 PM Interpretation: Performing Lab: Notes/Report: Testing performed at: [address] [place] [address] CLIA ID [id number] WBC 9.2 4.5-11.0 X10'3 RBC 4.68 4.00-5.20 X10'6 Hgb 13.7 12.0-16.0 G/DL Hct 44.7 36.0-46.0 % MCV 95.5 80.0-100.0 FL MCH 29.3 27.0-31.0 PG MCHC 30.6 31.0-37.0 G/DL Platelet 186 150-400 X10'3 RDW-SD 52.8 35.0-49.0 FL RDW-CV 15.2 12.2-15.6 % MPV 12.3 9.2-12.0 FL Review Auto Diff Conf Auto Diff Reviewed date:10/28/2023 01:02:19 PM Interpretation: Performing Lab: Notes/Report: Added by Discern Rules Neutro Auto% 60.6 42.0-75.0 % Lymph Auto% 26.7 20.0-51.0 % Barber Auto% 7.4 1.7-9.3 % Eos Auto% 4.0 .0-6.0 % Baso Auto% 0.9 0.0-1.0 % NRBC% .00 .00-.20 /100 int act WBC's Neutro Abs 5.57 .80-7.70 Absolute Neutrophil Count 5570 Lymph Abs 2.46 .10-4.10 Barber Abs .68 .20-1.00 Eos Abs .37 .00-.40 Baso Abs .08 .00-.10 NRBC# .00 .00-.20 X10'3 Imm Gran Abs .04 .00-.10 Imm Gran% .4 .0-.4 % Testing perform ed at: [address] [place] [id number] Abdomen, Pelvis w/ + w/o Contrast--41659 Reviewed date:01/09/2024 10:48:24 AM Interpretation: Performing Lab: Notes/Report: See Below For Report CT Abdomen, Pelvis w/ + w/o Contrast Read See Below For Report Basic Metabolic Panel Reviewed date:10/28/2023 01:02:19 PM Interpretation: Performing Lab: Notes/Report: Testing performed at [facility], [address] [place] [address] [place] [address]. CLIA ID#: [id number] W-nqdsuf-z-benzoquinone imine (NAPQI) is a metabolite of acetaminophen, NAPQI concentrations of apparoximately 10 mg/L correlation to toxic levels of acetaminophen demonstrates a greater than or equil to 10% change in results. NAPQI concentrations greater than this may lead to falsely depressed results for patient samples. Calculation performed from GFR calculator provided by the National [employer]. Glomerular Filtration rate(GRF) is the best overall index of kidney function. Normal GFR varies according to age,sex, body size, and declines with age. The National Kidney Foundation recommends using the CKD-EPI Creatinine Equation(202) to estimate GFR. Testing performed at: [address] [place] [address] CLIA ID [id number] Use of this assay is not recommended for patients undergoing treatment with phenindione, due to the potential for falsely depressed results. Sodium 144 136-145 MMOL/L Potassium 4.5 3.5-5.1 MMOL/L Chloride 109 98-107 MMOL/L CO2 25.4 20.0-31.0 MMOL/L Glucose Serum 269 71-110 MG/DL BUN 28 7-21 MG/DL Creat 1.33 .51-1.17 MG/DL GFR 45.6 Anion Gap 14 5-15 BUN/Creat Ratio 21.1 12.0-20.0 % Calcium 9.6 8.7-10.4 MG/DL Osmo Serum,Calculated 313 280-300 MOSM/KG Urinalysis, Routine Reviewed date:10/22/2023 04:14:13 PM Interpretation: Performing Lab: Notes/Report: Urine-Color yellow Appearance clear Glucose 2+ Bilirubin - Ketones - Specific [place] 1.015 Occult Blood - pH 6.0 Urine Protein - Urobilinogen,Semi-Qn - Nitrite, Urine - WBC Esterase - Urinalysis Gross Exam - Urinalysis, Routine Reviewed date:08/12/2023 02:41:14 PM Interpretation: Performing Lab: Notes/Report: Urine-Color yellow Appearance clear Glucose 2+ Bilirubin - Ketones - Specific [place] 1.015 Occult Blood - pH 5.5 Urine Protein - Urobilinogen,Semi-Qn - Nitrite, Urine - WBC Esterase - Urinalysis Gross Exam - Reason For Referral No Information Medications Medication SIG (Take, Route, Frequency, Duration) Notes Start Date End Date Status Aspirin 81 81 MG 1 tablet Orally Once a day Active Allopurinol 100 MG 1 tablet Orally Once a day Active Benazepril HCl 10 MG 1 tablet Orally Onc e a day Active Atorvastatin Calcium 40 MG 1 tablet Orally Once a day Active buPROPion HCl 75 MG 2 tablets Orally Twi ce a day Active Lantus 100 UNIT/ML as directed Subcutaneous Active Insulin Detemir 100 UNIT/ML as directed Subcutaneous Not-Taking Victoza 18 MG/3ML as directed Subcutaneous Not-Taking Farxiga 10 MG 1 tablet Orally Once a day Active Liraglutide 18 MG/3ML as directed Subcutaneous Not-Taking Trulicity 0.75 MG/0.5ML as directed Subcutaneous Active Metoprolol Tartrate 50 MG 1 tablet with food Orally Twice a day Not-Taking Acetaminophen 500 MG 1 capsule as needed Orally every 6 hrs Active Nystatin Not-Taking Social History Tobacco Use: Social History Observation Description Date Details (start date - stop date) Former Smoker NA - NA Tobacco Control (Standard) Question Answer Notes Tobacco use: Former smoker How long has it been since you last smoked? Grea ter than 10 years Problems Problem Type SNOMED Code ICD Code Onset Dates Problem Status W/U Status Risk Notes Problem 85784769 Type 2 diabetes mellitus with diabetic chronic kidney disease (E11.22) Active confirmed Problem 149156792 Type 2 diabetes mellitus without complications (E11.9) Active confirmed Problem 979758684 Chronic kidney disease, stage 4 (severe) (N18.4) Active confirmed Problem 187991970 long-term (current) use of insulin (Z79.4) Active confirmed Problem Ureteral stone with hydronephrosis (N13.2) Active confirmed Problem Disorder of kidney and/or ureter (176356699) Right renal mass (N28.89) Active confirmed Vital Signs Heart Rate 103 /min 02/05/2024 Temperature 97.5 degrees Fahrenheit 11/04/2023 Blood pressure diastolic 88 mm Hg 02/05/2024 Height-cm 165.1 cm 02/05/2024 Weight-kg 78.93 kg 02/05/2024 Height 65 in 02/05/2024 Blood pressure systolic 137 mm Hg 02/05/2024 Weight 174 lbs 02/05/2024 BMI 28.95 kg/m2 02/05/2024 Procedures Procedure Date Ordered Date Performed Result Body Sit e Bladder Scan 08/12/2023 08/12/2023 N/A Encounters Encounter Location Date Provider Diagnosis DO NOT USE THIS FACILITY [facility] [address] [place], [place] [id number] 09/10/2023 FRAN BARKER Clot hematuria R31.0 and History of smoking Z87.891 [email or web address] [address] [place] [address] 09/12/2023 FRAN BARKER Clot hematuria R31.0 and History of smoking Z87.891 [email or web address] [address] [place] [address] 09/15/2023 FRAN BARKER Hematuria R31.9 [employer] [address] [facility] [address] [place] [address] 10/22/2023 JUAN JOSE ATWOOD Preop testing Z01.81 8 ; Type 2 diabetes mellitus without complications E11.9 ; long-term (current) use of insulin Z79.4 ; Type 2 diabetes mellitus with diabetic chronic kidney disease E11.22 and Chronic kidney disease, stage 4 (severe) N18.4 [email or web address] [address] [place] [address] 10/27/2023 FRAN BARKER [facility] [address] [place] [address] 02/06/2024 EUFEMIA GILLESPIE [facility], [facility] [address] [place] [address] 03/02/2024 JUAN JOSE STEPHENSONKER [facility] [address] [place] [address] 10/22/2023 EUFEMIA GILLESPIE Ureteral stone with hydronephrosis N13.2 ; Surgical counseling visit Z71.89 ; Gross hematuria R31.0 ; Weakness R53.1 ; Fatigue R53.83 ; Itching L29.9 and Abdominal bloating R14.[address] [facility], [facility] [address] [place] [address] 02/05/2024 EUFEMIA GILLESPIE Right renal mass N28 .89 ; Right flank pain R10.9 ; History of hematuria Z87.448 and History of smoking Z87.[address] [facility], [facility] [address] [place] [address], [place] [address] 11/04/2023 JUAN JOSE ATWOOD Foreign body in othe r parts of genitourinary tract, initial encounter T19.8XXA ; Ureteral stone with hydronephrosis N13.2 ; Gross hematuria R31.0 ; Weakness R53.1 ; Fatigue R53.83 ; Itching L29.9 and Abdominal bloating R14.[address] [facility], [facility] [address] [place] [address], [place] [address] 09/05/2023 JUAN JOSE KRISTIN Clot hematuria R31.0 and History of smoking Z87.[address] [facility], [facility] [address] [place] [address], [place] [address] 08/12/2023 EUFEMIA GILLESPIE Clot hematuria R31.0 and History of smoking Z87.891 Assessments Encounter Date Diagnosis (ICD Code) Assessment Notes Treatment Notes Treatment Clinical Notes Section Notes 08/12/2023 Clot hematuria (ICD-10 - R31.0) 09/05/2023 Clot hematuria (ICD-10 - R31.0) Negative hematuria workup with cystoscopy however she needs CT scan hematuria protocol to complete. We will order this and set her up for f/u next available. 09/12/2023 Clot hematuria (ICD-10 - R31.0) 09/15/2023 Hematuria (ICD-10 - R31.9) 10/22/2023 Ureteral stone with hydronephrosis (ICD-10 - N13.2) 10/22/2023 Surgical counseling visit (ICD-10 - Z71.89) 09/10/2023 Clot hematuria (ICD-10 - R31.0) 11/04/2023 Foreign body in other parts of genitourinary tract, initial encounter (ICD-10 - T19.8XXA) Patient will follow-up in 6 weeks with KUB and Renal US to evaluate for calcifications and occult hydronephrosis respectively. 11/04/2023 Ureteral stone with hydronephrosis (ICD-10 - N13.2) Patient will follow-up in 6 weeks with KUB and Renal US to evaluate for calcifications and occult hydronephrosis respectively. 10/22/2023 Preop testing (ICD-10 - Z01.818) 02/05/2024 Right renal mass (ICD-10 - N28.89) 02/05/2024 Right flank pain (ICD-10 - R10.9) 02/05/2024 History of hematuria (ICD-10 - Z87.448) 11/04/2023 Gross hematuria (ICD-10 - R31.0) Patient will follow-up in 6 weeks with KUB and Renal US to evaluate for calcifications and occult hydronephrosis respectively. 10/22/2023 Type 2 diabetes mellitus without complications (ICD-10 - E11.9) 09/12/2023 History of smoking (ICD-10 - Z87.891) 08/12/2023 History of smoking (ICD-10 - Z87.891) 10/22/2023 Gross hematuria (ICD-10 - R31.0) 09/10/2023 History of smoking (ICD-10 - Z87.891) 09/05/2023 History of smoking (ICD-10 - Z87.891) Negative hematuria workup with cystoscopy however she needs CT scan hematuria protocol to complete. We will order this and set her up for f/u next available. 10/22/2023 Weakness (ICD-10 - R53.1) 10/22/2023 long-term (current) use of insulin (ICD-10 - Z79.4) 11/04/2023 Weakness (ICD-10 - R53.1) Patient will follow-up in 6 weeks with KUB and Renal US to evaluate for calcifications and occult hydronephrosis respectively. 02/05/2024 History of smoking (ICD-10 - Z87.891) 10/22/2023 Type 2 diabetes mellitus with diabetic chronic kidney disease (ICD-10 - E11.22) 11/04/2023 Fatigue (ICD-10 - R53.83) Patient will follow-up in 6 weeks with KUB and Renal US to evaluate for calcifications and occult hydronephrosis respectively. 10/22/2023 Fatigue (ICD-10 - R53.83) 10/22/2023 Itching (ICD-10 - L29.9) 10/22/2023 Chronic kidney disease, stage 4 (severe) (ICD-10 - N18.4) 11/04/2023 Itching (ICD-10 - L29.9) Patient will follow-up in 6 weeks with KUB and Renal US to evaluate for calcifications and occult hydronephrosis respectively. 11/04/2023 Abdominal bloating (ICD-10 - R14.0) Patient will follow-up in 6 weeks with KUB and Renal US to evaluate for calcifications and occult hydronephrosis respectively. 10/22/2023 Abdominal bloating (ICD-10 - R14.0) 08/12/2023 Other UA clear today. PVR 0ml. Patient has picture on her phone from very large blood clots she passed in urine about 1 month ago. She states this is not the first time this has happened. Given her recurrent painless hematuria and history of heavy smoking, we have discussed the need for hematuria work up as there is a very strong concern for bladder cancer. She is self pay. No history of kidney stones. I will defer imaging for now, but strongly encourage a cystoscopy. She is agreeable and will RTC for cystoscopy in clinic. All questions that were asked were answered. Patient is satisfied with plan of care. 02/05/2024 Other Deferred UA today. KUB normal on 01/23/2024. EUGENE without hydronephrosis, but shows a soft tissue thickening involving the superior pole of the right kidney measuring 2.4 x 1.8 x 2.4 cm, concerning for renal mass vs. pseudo-tumor. I have independently reviewed imaging while in consult with Dr. Barker, along with radiologic report. I reviewed images and discussed findings with patient in the exam room. The previous CT from 10/2023 also reviewed, and Dr. Barker and I are unable to appreciate a possible renal tumor at R superior kidney. However, she had severe hydronephrosis at the time, so cannot assure that visualiization was not obscured and she has significant smoking history so she is high risk for RCC. Recommend repeating CT now that hydronephrosis has resolved. Patient agreeable, but would like to have CT done at [place] for convenience. She will RTC in 4-[address] review with Dr. Atwood. All questions that were asked were answered. Patient satisfied with plan of care. 10/22/[address] 10/15/23 with 9 x 15 mm right distal ureteral stone with severe right hydronephrosis. I have independently reviewed imaging, along with radiologic report. I reviewed images and discussed findings with patient in the exam room. She initially had onset of clot hematuria in 07/2023. We have discussed that it is possible this is when she started passing stone and has been obstructed for over 3 months, increasing her chance for sepsis or possibly permanent kidney injury. Recommended that we schedule her for emergent right ureteral stent placement with Dr. Atwood tomorrow in [place]. Patient is very hesitant, states this is ridiculous and she traveled long enough to get here . I have again reiterated the emergent status of her condition. She had her come in the room, have again reviewed imaging and discussed emergent nature of her condition. Patient is again hesitant, but agreeable to surgery tomorrow. I have explained how procedure is performed, along with risk/benefits and postprocedural expectations. Orders given to go to [facility] and have her labs/EKG done today. She is scheduled for cystoscopy, right ureteral stent placement tomorrow with Dr. Atwood at [facility]. All questions that were asked were answered. Patient is satisfied plan of care. Plan Of Treatment Pending Test Test Name Order Date KUB, X-Ray: Abdomen, Kidney, Urete r, bladder 11/04/2023 CT Abd & Pelvis W & [place] IV contrast [id number] 02/05/2024 CT Abd & Pelvis [place] & [place] [id number] 09/12/2023 BUN, Creatinine 09/15/2023 Renal Ultrasound EUGENE [address] 11/04/2023 CBC w/ Auto Diff 10/22/2023 Electrocardiogram, 12 Lead Tracing-00115 10/22/2023 Medical (General) History Medical History History ICD Code hyperlipidemia poor compliance stage 4 chronic kidney disease uncontrolled type 2 diabetes anxiety disorder hx of gout Surgical History Surgery Date(Month/Year) cholecystectomy Hospitalization History Reason Date(Month/Year) see prior
--- OUTSIDE RECORDS SUMMARY | 2024-07-22 16:07 | XMS_ITS | Patient Health Record ---
Author Organization [facility] Address [address] [facility] [place] [id number] Care Team Providers Care Nurse Advisor Name Role Phone Ward Atwood [phone] Results Component Value Reference Range Notes RETROGRADE PYELOGRAM Reviewed date:10/27/2023 07:26:14 AM Interpretation: Performing Lab: Notes/Report: [facility] [address] [place] [address] DIAGNOSTIC RADIOLOGY REPORT NAME: BRIDGETT CANTOR NYA VISIT DATE: 10/23/23 : 1960 SEX / AGE: F / 62 ORDERING PHY: WARD ATWOOD MD PRIMARY CARE PHY: WARD ATWOOD MD MED REC #: [id number] PT TYPE: DEP SDC Exam Performed: 10/23/23 8697 REPORT STATUS: Signed RETROGRADE PYELOGRAM Intraoperative fluoroscopic images provided by Urology. TRANSCRIBED BY: Sonia Soto TRANSCRIBED BY DATE/TIME: 10/24/23 1043 DICTATED BY: Jarad Wilson MD DICTATED DATE/TIME: 10/24/23 0708 ELECTRONICALLY SIGNED BY: Jarad Wilson MD SIGNED DATE/TIME: 10/24/23 1447 Copies To: WARD ATWOOD MD [facility] [address] [place] [address] DIAGNOSTIC RADIOLOGY REPORT NAME: BRIDGETT CANTOR VISIT DATE: 10/23/23 : 1960 SEX / AGE: F / 62 ORDERING PHY: WARD ATWOOD MD PRIMARY CARE PHY: WARD ATWOOD MD MED REC #: [id number] PT TYPE: DEP SDC Exam Performed: 10/10 08/02 4175 REPORT STATUS: Signed RETROGRADE PYELOGRAM Intraoperative fluoroscopic images provided by Urology. TRANSCRIBED BY: Ryan Soto TRANSCRIBED BY DATE/ TIME: 10/24/23 1043 DICTATED BY: Jarad Wilson MD DICTATED DATE/TIME: 10/24/23 0708 ELECTRONICALLY WINIFRED D BY: Jarad Wilson MD SIGNED DATE/TIME: 10/24/23 1447 Copies To: ROB ATWOOD MD [facility] Reviewed date:11/03/2023 04:51:37 PM Interpretation: Performing Lab:[facility] Notes/Report: Has specimen been collected/obtained? Y SPECIMEN SOURCE R URETER COMPOSITION 1: SEE NOTE Calcium Oxalate Dihydrate (Weddellite) 20% Calcium Oxalate Monohydrate (Whewellite) 80% WEIGHT: 0.230 It has not been cleared or approved by FDA. This assay has been validated pursuant to the CLIA regulations and is used for clinical purposes. THIS TEST WAS PERFORMED AT: [facility] This test was developed and its analytical performance characteristics have been determined by [employer]. [address] [place] [address] RUSSEL LORENZANA MD,PHD,UZAIR Reason For Referral No Information Encounters Encounter Location Date Provider Diagnosis [facility] [address] [facility] [address] [place] [address] 10/23/2023 Wadr Atwood Plan Of Treatment No Information
--- OUTSIDE RECORDS SUMMARY | 2024-07-22 16:07 | XMS_ITS ---
Author Organization [facility] Address [address] [place] [address] Care Team Providers Care Woven Blind Loom Tender Name Role Phone Phyllis De Leon Primary Care Provider JUAN JOSE Nelson [phone] Encounters Encounter Location Date Provider Diagnosis [facility] [address] [place] [address] 03/02/2024 JUAN JOSE FOSTER Plan Of Treatment No Information Progress Notes * Bridgett CANTORDOB: [birth year] (63 yo F)Acc No.[id number]:03/02/2024 Patient:?CELESTE Bridgett Arnold :1960???Age:63 Y???Sex:Female Address:[address] [place] [address] * true * Date:? Generated for Sandrai la/Kei/eTransmitting on:?07/22/2024 04:06 PM CDT
[2024-07-22] MEDS: sodium chloride 0.9% 1,000 ML 100 ML IV (17:32)
[2024-07-22 17:43] LABS: Glucose Point of Care 303 mg/dL (70-110)
[2024-07-22] MEDS: insulin lispro 100 unit/1 mL SUBCUT ×2 (18:24→21:41)
[2024-07-22 19:01] VITALS: BP 142/68; PULSE 100; RESP 26; TEMP 37; O2SAT 97
[2024-07-22 19:47] VITALS: BP 130/98; PULSE 106; RESP 18; TEMP 36.8; O2SAT 96
[2024-07-22 20:47] LABS: Glucose Point of Care 285 mg/dL (70-110)
--- NOTE | 2024-07-22 22:51 | PM.HP ---
Providers/Chief Complaint Admitting Physician: Devin Lala MD Primary Care Provider: SHAGUFTA Jones Chief Complaint: Pre-hydration History of Present Illness Bridgett Cantor is a 63 year old female past medical history significant hypertension hyperlipidemia peripheral arterial disease nonhealing left foot wound underwent CTA with runoff, she was noted to have high-grade stenosis and near occluded left distal SFA. Due to lifestyle limiting claudication and critical limb ischemia with recurrent left foot ulcer, patient was suggested peripheral angiogram with possible intervention of the left distal SFA. Due to underlying chronic kidney disease and acute on chronic renal failure and in order to prevent contrast induced nephropathy patient is admitted for IV fluid before the procedure. Medications/Allergies Home Medications ?Medication ?Instructions ?Recorded ?Confirmed ?Last Taken ?Type aspirin 81 mg tablet,delayed 81 mg PO DAILY 05/20/19 07/22/24 07/21/24 History release acetaminophen 500 mg capsule 500 mg PO Q6H PRN Pain 12/04/21 07/22/24 07/22/24 History mecobalamin (vitamin B12) 1,000 See Rx Instructions .Route 03/04/24 07/22/24 07/21/24 Rx mcg disintegrating .COMPLEX #90 tabs tablet,sublingual metoprolol tartrate 50 mg tablet 75 mg (1.5 x 50 mg) PO BID #270 06/28/24 07/22/24 07/21/24 Rx tabs allopurinol 300 mg tablet 300 mg PO BID 07/11/24 07/22/24 07/21/24 History atorvastatin 40 mg tablet 40 mg PO DAILY 07/11/24 07/22/24 07/21/24 History benazepril 20 mg tablet 20 mg PO DAILY 07/11/24 07/22/24 07/21/24 History bupropion HCl 150 mg 24 hr tablet, 150 mg PO QAM 07/11/24 07/22/24 07/21/24 History extended release dapagliflozin propanediol 10 mg 10 mg PO QAM 07/11/24 07/22/24 07/21/24 History tablet dulaglutide 0.75 mg/0.5 mL 0.75 mg SUBCUT Q7D 07/11/24 07/22/24 07/14/24 History subcutaneous pen injector ([facility]) glipizide 10 mg tablet, extended 10 mg PO DAILY 07/11/24 07/22/24 07/21/24 History release 24 hr insulin glargine 100 unit/mL (3 45 unit SUBCUT BID 07/11/24 07/22/24 07/21/24 History mL) subcutaneous pen (Lantus Solostar U-100 Insulin) loratadine 10 mg tablet 10 mg PO DAILY 07/11/24 07/22/24 07/21/24 History Allergies Allergy/AdvReac Type Severity Reaction Status Date / Time Cephalosporins Allergy Unknown Verified 06/28/24 18:13 hydrochlorothiazide Allergy ALGY-Rash Verified 06/28/24 18:13 PFSH Acute PFSH: Medical History (Updated 07/22/24 @ 23:03 by Devin Lala MD) Diabetes Gout Current use of insulin Poor compliance Stage 4 chronic kidney disease Anxiety state Uncontrolled type 2 diabetes mellitus with hyperglycemia Hyperlipidemia Hypertension Surgical History History of amputation of finger History of cholecystectomy Family History Mother Anesthesia complication Diabetes Lung disease Father Clotting disorder Diabetes Stroke Sister CAD (coronary artery disease) later in life Cancer Diabetes Lung disease Stroke Brother CAD (coronary artery disease) Chronic kidney disease (CKD) Diabetes Other Hypertension Denies family history of Dementia Suicide Bleeding disorder Social History Smoking and tobacco/nicotine status: former use of tobacco/nicotine Quit status (tobacco/nicotine): has quit using Year quit tobacco: over 20 years ago Second hand smoke exposure: No Alcohol intake: never Substance/Drug Use: never Caregiver/support person: Yes Lives independently: Yes Household members: spouse Marital status: service: No Current occupational status: disabled Current gender identity: Female Special luca needs: No Vitals/I&O/Wt Last Vital Signs Temp 98.3 F 07/22/24 19:47 Pulse 106 H 07/22/24 19:47 Resp 18 07/22/24 19:47 BP 130/98 07/22/24 19:47 Pulse Ox 96 07/22/24 19:47 O2 Del Method Room Air 07/22/24 19:01 07/22/24 07/22/24 07/22/24 06:59 14:59 22:59 Intake Total 240 / 240 Balance 240 / 240 Weight last 48 hrs Weight 186 lb 11.2 oz Physical Exam Const: OTHER: GENERAL: Patient is alert, awake and oriented x3. HEART: Regular S1 and S2. No murmur, rub or gallop. LUNGS: Clear to auscultate bilaterally. CENTRAL NERVOUS SYSTEM: Grossly nonfocal. EXTREMITIES: Lower extremities with out edema bilaterally. A&P Assessment and plan (1) Critical lower limb ischemia: (2) Hypertension: Qualifiers: Hypertension type: essential hypertension Qualified Code(s): I10 - Essential (primary) hypertension (3) Acute kidney injury superimposed on chronic kidney disease: (4) Diabetes: Plan Patient is admitted for IV hydration for acute on chronic kidney disease and before proceeding with peripheral angiogram/percutaneous angioplasty of the left lower extremity for overnight IV fluid Continue 100 mL/h for next 12 hours of normal saline Obtain BMP in the Morning Possible peripheral angiogram with percutaneous angioplasty tomorrow if creatinine goes back to baseline Continue home meds Continue sliding scale PDMP PDMP Reviewed: Not Reviewed Attestations Medical Necessity Statement*: I am expecting patient stay to cross more than 2 midnights Coding Level of Care Code Acute Code for Chg Fwd Diagnoses Critical lower limb ischemia I70.229 Essential hypertension I10 Hypertension type: essential hypertension Acute kidney injury superimposed on chronic kidney disease N17.9; N18.9 Diabetes E11.9
[2024-07-23] VITALS (25 sets, daily range): BP systolic 112–154; BP diastolic 64–84; PULSE 80–97; RESP 14–27; TEMP 36.5–36.7; O2SAT 90–99; BMI 31.8
[2024-07-23 03:59] LABS: Basophils # 0.1 10^3/uL (0.0-0.1); Basophils % 0.7 %; Eosinophils # 0.4 10^3/uL (0.0-0.8); Eosinophils % 6.3 %; Hematocrit 38.2 % (36-47); Lymphocytes # 2.3 10^3/uL (0.8-4.8); Lymphocytes % 33.5 %; Mean Corpuscular HGB Conc 31.4 g/dL (30-55); Mean Corpuscular Hemoglobin 29.8 pg (27-33); Mean Corpuscular Volume 94.8 fl (85-98); Mean Platelet Volume 11.1 fL (7.4-10.4); Monocytes # 0.8 10^3/uL (0.2-0.9); Monocytes % 11.1 %; Neutrophils # 3.34 10^3/uL (1.8-7.7); Neutrophils % 48.1 %; Nucleated Red Blood Cells % 0 %; Platelet Count 166 10^3/cmm (157-399); Red Blood Count 4.03 10^6/uL (3.85-5.65); Red Cell Distribution Width 14.8 % (12.1-15.1); White Blood Count 6.95 10^3/uL (3.29-11.43)
[2024-07-23] MEDS: sodium chloride 0.9% 1,000 ML 100 ML IV ×2 (04:05→08:59)
[2024-07-23 04:12] LABS: INR 0.99 (0.8-1.2)
[2024-07-23 04:13] LABS: Partial Thromboplastin Time 27.8 SECONDS (23.9-36.7)
[2024-07-23 04:21] LABS: Anion Gap 13.7 (5-19); Blood Urea Nitrogen 23 mg/dL (8-23); Calcium 8.4 mg/dL (8.5-10.5); Carbon Dioxide 21 mmol/L (22-29); Chloride 112 mmol/L (98-107); Glomerular Filtration Rate 41.6 mL/min (90-130); Glucose 94 mg/dL (65-115); Osmolality Calculated 299 mOsm/kg (285-295); Potassium 3.7 mmol/L (3.5-5.1); Sodium 143 mmol/L (136-145)
[2024-07-23] MEDS: diphenhydrAMINE 50 mg Capsule PO (05:02)
--- NOTE | 2024-07-23 07:05 | W.PM.OPSUD ---
Surgery/Procedure H&P Update DATE OF PROCEDURE: July 23, 2024 DATE H&P PERFORMED: 07/22/24 H&P UPDATE INFORMATION: I have reviewed H&P completed within last 30 days, I have examined patient prior to procedure and No changes to prior documentation PREOP DIAGNOSIS: Lifestyle limiting claudication/severe peripheral arterial disease/history PLANNED PROCEDURE: Foot ulcer history of/PAD/abnormal CTA with runoff PATIENT REASSESSED PRIOR TO SEDATION, WITH NO CHANGE NOTED: Yes PHYSICAL EXAM: alert, oriented x 3, clear to auscultation bilaterally, regular rate & rhythm and operative site marked AIRWAY EVAL/ANESTHESIA PLAN: ASA II, Risks, benefits & alternatives of sedation and/or procedure discussed and Patient agrees to continue as planned ADDITIONAL INFORMATION: I have detailed discussion with the patient and her daughter by bedside. Patient has been explained in detail all risk-benefit and alternative for the procedure. Patient understand this is not an emergent procedure, she understands the risk of contrast-induced nephropathy which is more than 6 %, risk for temporary or permanent dialysis, 2% risk of stroke major bleed, 2% risk of distal thromboembolic phenomena leading to acute limb ischemia urgent or emergent vascular surgery worst-case scenario amputation. Patient understand risk for IL stroke hematoma infection bruising and bleeding. After detailed discussion and meeting before the procedure patient and her daughter choose to proceed with it.
--- NOTE | 2024-07-23 07:24 | PC.NURSE ---
Patient taken by bed to optical laboratory manager for planned peripheral angiogram. No distress observed.
[2024-07-23 08:37] LABS: Glucose Point of Care 104 mg/dL (70-110)
--- NOTE | 2024-07-23 08:42 | PM.PROC ---
Procedure Note: Date of procedure: 07/23/24 Pre-procedure diagnosis: Peripheral arterial disease Post-procedure diagnosis: same Procedure: Lifestyle limiting claudication/history of wound on the left foot/peripheral artery disease Peripheral angiogram was performed: Left distal SFA/proximal popliteal artery was subtotally near occlusion with high-grade stenosis. It was treated with balloon angioplasty, excellent angiographic result with good flow was achieved, patient had no complication, three-vessel runoff was noted below the left knee. Due to chronic kidney disease I will continue IV fluid 100 mL/h for 12 hours We will give 300 mg of Plavix now time 1 followed by aspirin 81 mg. I am planning to start patient on Xarelto 2.5 mg twice daily for at least 3 months Recheck Chem-7 in the morning. Coding Level of Care Code Acute Code for Raza Sen
[2024-07-23] MEDS: aspirin 81 mg EC Tablet PO (08:52)
[2024-07-23] MEDS: loratadine 10 mg Tablet PO (08:53)
[2024-07-23] MEDS: atorvastatin 40 mg Tablet PO (08:53)
[2024-07-23] MEDS: clopidogrel 300 mg Tablet PO (08:53)
[2024-07-23] MEDS: metoprolol tartrate 50 mg Tablet 75 MG PO ×2 (08:53→17:22)
[2024-07-23] MEDS: allopurinol 300 mg Tablet PO ×2 (08:54→17:23)
[2024-07-23] MEDS: lisinopril 20 mg Tablet PO (09:03)
--- NOTE | 2024-07-23 10:19 | PC.NURSE ---
At 0835, Patient received from cathodic protection technician via s/p peripheral angiogram with sheath attached to pressure bag in place. Site without s/s of bleeding or hematoma formation observed. Instructed patient on site care and restrictions. Patient verbalized complete understanding. PTT pending.
[2024-07-23 11:26] LABS: Glucose Point of Care 167 mg/dL (70-110)
[2024-07-23 11:53] LABS: Partial Thromboplastin Time > 250.0 SECONDS (23.9-36.7)
[2024-07-23 14:48] LABS: Partial Thromboplastin Time 41.9 SECONDS (23.9-36.7)
--- NOTE | 2024-07-23 15:48 | PC.NURSE ---
Initiated sheath removal at 1510 using aseptic technique. Hemostasis achieved immediately. Maintained presssure for 20min. No s/s of bleeding or hematoma observed. Covered site with folded 4x4 and bio-occlusive dressing. VS remained WNL. Instructed patient on site care and restrictions. Patient verbalized complete understanding. Will continue to monitor.
[2024-07-23 16:54] LABS: Glucose Point of Care 198 mg/dL (70-110)
[2024-07-23] MEDS: insulin lispro 100 unit/1 mL SUBCUT ×2 (17:24→21:36)
[2024-07-23] MEDS: insulin glargine 100 units/1 mL 45 UNIT SUBCUT (17:24)
[2024-07-23 21:17] LABS: Glucose Point of Care 283 mg/dL (70-110)
[2024-07-23] MEDS: rivaroxaban 10 mg Tablet 2.5 MG PO (22:17)
[2024-07-24 00:57] VITALS: BP 132/73; PULSE 83; RESP 28; TEMP 36.9; O2SAT 95
[2024-07-24 05:19] LABS: Basophils # 0.1 10^3/uL (0.0-0.1); Basophils % 0.7 %; Eosinophils # 0.6 10^3/uL (0.0-0.8); Eosinophils % 6.4 %; Hematocrit 41.7 % (36-47); Lymphocytes # 1.6 10^3/uL (0.8-4.8); Lymphocytes % 16.4 %; Mean Corpuscular HGB Conc 31.4 g/dL (30-55); Mean Corpuscular Hemoglobin 29.4 pg (27-33); Mean Corpuscular Volume 93.7 fl (85-98); Mean Platelet Volume 10.7 fL (7.4-10.4); Monocytes # 0.8 10^3/uL (0.2-0.9); Monocytes % 7.9 %; Neutrophils # 6.46 10^3/uL (1.8-7.7); Neutrophils % 68.2 %; Nucleated Red Blood Cells % 0 %; Platelet Count 180 10^3/cmm (157-399); Red Blood Count 4.45 10^6/uL (3.85-5.65); Red Cell Distribution Width 14.8 % (12.1-15.1); White Blood Count 9.49 10^3/uL (3.29-11.43)
[2024-07-24 05:21] VITALS: BP 129/73; PULSE 81; RESP 24; TEMP 36.8; O2SAT 94
[2024-07-24 05:35] LABS: Anion Gap 12.2 (5-19); Blood Urea Nitrogen 23 mg/dL (8-23); Carbon Dioxide 21 mmol/L (22-29); Chloride 111 mmol/L (98-107); Glomerular Filtration Rate 41.6 mL/min (90-130); Glucose 127 mg/dL (65-115); Osmolality Calculated 295 mOsm/kg (285-295); Potassium 4.2 mmol/L (3.5-5.1); Sodium 140 mmol/L (136-145)
[2024-07-24 06:15] LABS: Glucose Point of Care 119 mg/dL (70-110)
[2024-07-24] MEDS: buPROPion XL (24 HR) 150 mg Tablet PO (06:31)
[2024-07-24 08:52] VITALS: BP 119/69; PULSE 82; RESP 28; TEMP 36.6; O2SAT 98
[2024-07-24] MEDS: atorvastatin 40 mg Tablet PO (08:57)
[2024-07-24] MEDS: aspirin 81 mg EC Tablet PO (08:57)
[2024-07-24] MEDS: allopurinol 300 mg Tablet PO (08:57)
[2024-07-24] MEDS: lisinopril 20 mg Tablet PO (08:58)
[2024-07-24] MEDS: metoprolol tartrate 50 mg Tablet 75 MG PO (08:58)
[2024-07-24] MEDS: loratadine 10 mg Tablet PO (08:58)
[2024-07-24] MEDS: rivaroxaban 10 mg Tablet 2.5 MG PO (08:58)
[2024-07-24] MEDS: insulin glargine 100 units/1 mL 45 UNIT SUBCUT (09:07)
[2024-07-24 11:18] LABS: Glucose Point of Care 230 mg/dL (70-110)
[2024-07-24] MEDS: insulin lispro 100 unit/1 mL SUBCUT (12:53)
[2024-07-24 12:56] VITALS: BP 119/67; PULSE 89; RESP 23; TEMP 36.9; O2SAT 95
[2024-07-24 14:00] VITALS: PULSE 87
--- NOTE | 2024-07-24 14:33 | P.PN_ITS ---
Subjective 2 Subjective: Denies any complaint except there appeared to be right groin bruise after pulling out the right common femoral sheath. Creatinine remained stable. Patient has been rehydrated. She is status post balloon angioplasty of left distal SFA and proximal popliteal vessel for high-grade subtotal occlusion, excellent angiographic result with good flow was achieved at the end of the case yesterday. She tolerated procedure well and recovered. Vitals/I&O/Wt Last Vital Signs Temp 98.4 F 07/24/24 12:56 Pulse 89 07/24/24 12:56 Resp 23 H 07/24/24 12:56 BP 119/67 07/24/24 12:56 Pulse Ox 95 07/24/24 12:56 O2 Del Method Room Air 07/24/24 12:56 07/23/24 07/24/24 07/24/24 22:59 06:59 14:59 Intake Total 1400 / 1891.667 0 / 1891.667 120 / 120 Output Total 400 / 600 0 / 600 Balance 1000 / 1291.667 0 / 1291.667 120 / 120 Weight last 48 hrs Weight 186 lb 4.8 oz Weight 185 lb 4 oz Weight 186 lb 11.2 oz Physical Exam 2 Const: OTHER: GENERAL: Patient is alert, awake and oriented x3. HEART: Regular S1 and S2. No murmur, rub or gallop. LUNGS: Clear to auscultate bilaterally. CENTRAL NERVOUS SYSTEM: Grossly nonfocal. EXTREMITIES: Lower extremities with out edema bilaterally. Data 07/24/24 05:06 07/24/24 05:06 A&P Assessment and plan (1) Acute kidney injury superimposed on chronic kidney disease: (2) Critical lower limb ischemia: (3) PAD (peripheral artery disease): (4) Hypertension: Qualifiers: Hypertension type: essential hypertension Qualified Code(s): I10 - Essential (primary) hypertension Plan Patient was admitted for worsening of renal function and before peripheral angiogram for critical limb ischemia and abnormal CTA angio with lower extremity left distal SFA and popliteal high-grade stenosis. After improving renal function from 1.6-1.3 yesterday with proceeded with peripheral angiogram and balloon angioplasty of left distal SFA/popliteal artery excellent angiographic result with good flow was achieved. Patient was observed overnight without any significant complication tolerated procedure well she was continuously rehydrated. This morning creatinine appeared to be 1.3 which is stable and baseline we will therefore discharge patient today on home medicine including aspirin atorvastatin benazepril metoprolol and addition of Xarelto 2.5 mg twice daily for peripheral arterial disease post balloon angioplasty. We will see patient back in the cardiology clinic in 1 week with our cardiology nurse practitioner. PDMP PDMP Reviewed: Not Reviewed Attestations 2 Medical Necessity Statement*: Patient was admitted for IV hydration due to dehydration and acute on chronic worsening of renal function and in order to prevent contrast induced nephropathy before proceeding with peripheral angiogram. She required 2 midnight stays Coding Level of Care Code Acute Code for g Fwd Diagnoses Acute kidney injury superimposed on chronic kidney disease N17.9; N18.9 Critical lower limb ischemia I70.229 PAD (peripheral artery disease) I73.9 Essential hypertension I10 Hypertension type: essential hypertension
--- NOTE | 2024-07-24 14:42 | PM.DCS ---
Discharge Providers Date of Admission: 07/23/24 08:45 Date of Discharge: July 24, 2024 Attending Provider at Admission: Devin Lala MD Attending Provider at Discharge: Devin Lala MD Primary Care Provider: SHAGUFTA Jones Diagnoses at Discharge Discharge Diagnosis (1) Acute kidney injury superimposed on chronic kidney disease: Status: Acute (2) Critical lower limb ischemia: Status: Acute (3) PAD (peripheral artery disease): Status: Acute (4) Hypertension: Status: Acute Qualifiers: Hypertension type: essential hypertension Qualified Code(s): I10 - Essential (primary) hypertension Reason for Visit Reason for Visit: Pre-hydration Hospital Course Hospital Course Patient was admitted for worsening of renal function and before peripheral angiogram for critical limb ischemia and abnormal CTA angio with lower extremity left distal SFA and popliteal high-grade stenosis. After improving renal function from 1.6-1.3 yesterday with proceeded with peripheral angiogram and balloon angioplasty of left distal SFA/popliteal artery excellent angiographic result with good flow was achieved. Patient was observed overnight without any significant complication tolerated procedure well she was continuously rehydrated. This morning creatinine appeared to be 1.3 which is stable and baseline we will therefore discharge patient today on home medicine including aspirin atorvastatin benazepril metoprolol and addition of Xarelto 2.5 mg twice daily for peripheral arterial disease post balloon angioplasty. We will see patient back in the cardiology clinic in 1 week with our cardiology nurse practitioner. Physical Exam Const: OTHER: GENERAL: Patient is alert, awake and oriented x3. HEART: Regular S1 and S2. No murmur, rub or gallop. LUNGS: Clear to auscultate bilaterally. CENTRAL NERVOUS SYSTEM: Grossly nonfocal. EXTREMITIES: Lower extremities with out edema bilaterally. Discharge Data Studies Completed and Pending Pending at discharge Category Date Time Status [employer] request for service Routine Exams 07/23/24 05:22 Taken Laboratory Results WBC 9.49 10^3/uL (3.29-11.43) 07/24/24 05:06 RBC 4.45 10^6/uL (3.85-5.65) 07/24/24 05:06 Hgb 13.10 g/dL (11.27-16.99) 07/24/24 05:06 Hct 41.7 % (36-47) 07/24/24 05:06 MCV 93.7 fl (85-98) 07/24/24 05:06 MCH 29.4 pg (27-33) 07/24/24 05:06 MCHC 31.4 g/dL (30-55) 07/24/24 05:06 RDW 14.8 % (12.1-15.1) 07/24/24 05:06 Plt Count 180 10^3/cmm (157-399) 07/24/24 05:06 MPV 10.7 fL (7.4-10.4) H 07/24/24 05:06 Neut % (Auto) 68.2 % 07/24/24 05:06 Lymph % (Auto) 16.4 % 07/24/24 05:06 [place] % (Auto) 7.9 % 07/24/24 05:06 Eos % (Auto) 6.4 % 07/24/24 05:06 Baso % (Auto) 0.7 % 07/24/24 05:06 Neut # (Auto) 6.46 10^3/uL (1.8-7.7) 07/24/24 05:06 Lymph # (Auto) 1.6 10^3/uL (0.8-4.8) 07/24/24 05:06 [place] # (Auto) 0.8 10^3/uL (0.2-0.9) 07/24/24 05:06 Eos # (Auto) 0.6 10^3/uL (0.0-0.8) 07/24/24 05:06 Baso # (Auto) 0.1 10^3/uL (0.0-0.1) 07/24/24 05:06 Nucleated RBC % (auto) 0 % 07/24/24 05:06 Nucleated RBCs # 0.0 /100WBC 07/24/24 05:06 PT 13.80 SECONDS (12.1-14.9) 07/23/24 03:14 INR 0.99 (0.8-1.2) 07/23/24 03:14 APTT 41.9 SECONDS (23.9-36.7) H D 07/23/24 14:22 Sodium 140 mmol/L (136-145) 07/24/24 05:06 Potassium 4.2 mmol/L (3.5-5.1) 07/24/24 05:06 Chloride 111 mmol/L (98-107) H 07/24/24 05:06 Carbon Dioxide 21 mmol/L (22-29) L 07/24/24 05:06 Anion Gap 12.2 (5-19) 07/24/24 05:06 BUN 23 mg/dL (8-23) 07/24/24 05:06 Creatinine 1.3 mg/dL (0.5-0.9) H 07/24/24 05:06 GFR Calculation 41.6 mL/min (90-130) L 07/24/24 05:06 Glucose 127 mg/dL (65-115) H 07/24/24 05:06 POC Glucose 230 mg/dL (70-110) H 07/24/24 10:53 Calculated Osmolality 295 mOsm/kg (285-295) 07/24/24 05:06 Calcium 9.0 mg/dL (8.5-10.5) 07/24/24 05:06 Vitals Last Vital Signs Temp 98.4 F 07/24/24 12:56 Pulse 89 07/24/24 12:56 Resp 23 H 07/24/24 12:56 BP 119/67 07/24/24 12:56 Pulse Ox 95 07/24/24 12:56 O2 Del Method Room Air 07/24/24 12:56 Discharge Plan Discharge Patient Disposition: Home Condition: Stable Prescriptions: New amlodipine 5 mg tablet 5 mg PO DAILY Qty: 30 3RF rivaroxaban 2.5 mg tablet 2.5 mg PO BID Qty: 60 4RF Continued aspirin 81 mg tablet,delayed release (DR/EC) 81 mg PO DAILY metoprolol tartrate 50 mg tablet 75 mg PO BID Qty: 270 3RF acetaminophen 500 mg capsule 500 mg PO Q6H PRN (Reason: Pain) mecobalamin (vitamin B12) 1,000 mcg tablet,disintegrating See Rx Instructions .ROUTE .COMPLEX Qty: 90 1RF Dose Instruction: place tablet UNDER TONGUE and allow TO dissolve FOR at least 30 seconds before swallowing take ONCE daily Rx Instructions: place tablet UNDER TONGUE and allow TO dissolve FOR at least 30 seconds before swallowing take ONCE daily atorvastatin 40 mg tablet 40 mg PO DAILY Rx Instructions: TAKE ONE TABLET BY MOUTH DAILY glipizide 10 mg tablet extended release 24hr 10 mg PO DAILY Rx Instructions: TAKE ONE TABLET BY MOUTH DAILY allopurinol 300 mg tablet 300 mg PO BID Rx Instructions: TAKE ONE TABLET BY MOUTH TWICE DAILY loratadine 10 mg tablet 10 mg PO DAILY Rx Instructions: TAKE ONE TABLET BY MOUTH EVERY DAY bupropion HCl 150 mg tablet extended release 24 hr 150 mg PO QAM Rx Instructions: TAKE ONE TABLET BY MOUTH EVERY MORNING insulin glargine [Lantus Solostar U-100 Insulin] 100 unit/mL (3 mL) insulin pen 45 unit SUBCUT BID Rx Instructions: INJECT 45 UNITS SUBCUTANEOUSLY TWICE DAILY dapagliflozin propanediol 10 mg tablet 10 mg PO QAM Rx Instructions: TAKE ONE TABLET BY MOUTH EVERY MORNING Trulicity 0.75 mg/0.5 mL pen injector 0.75 mg SUBCUT Q7D Rx Instructions: inject 0.75mg SUBCUTANEOUSLY ONCE WEEKLY Discontinued benazepril 20 mg tablet 20 mg PO DAILY Rx Instructions: TAKE ONE TABLET BY MOUTH EVERY DAY Discharge Orders: Discharge Order (Routine); Ordered 07/24/24 Ordered By: Devin Lala Referrals: Carol Winston NP [Nurse Practitioner] - 7-10 days (We have notified your physician's clinic of the need for a follow-up appointment to be scheduled. If you have not heard from them within the next 2 business days, please call them directly. ) Vinita Mcdonough FNP [Primary Care Provider] - 7-10 days (We have notified your physician's clinic of the need for a follow-up appointment to be scheduled. If you have not heard from them within the next 2 business days, please call them directly. ) Patient Instructions: Amlodipine (By mouth), Rivaroxaban (By mouth), Peripheral Artery Disease (DC) Discharge Attestations Time Spent in Discharge Care*: greater than 30 min Quality Metrics Clinical Quality Measures [ No reported AMI, CVA or VTE this stay] Coding Level of Care Code Acute Code for Chg Fwd Diagnoses Acute kidney injury superimposed on chronic kidney disease N17.9; N18.9 Critical lower limb ischemia I70.229 PAD (peripheral artery disease) I73.9 Essential hypertension I10 Hypertension type: essential hypertension
[2024-07-24 15:33] VITALS: BP 143/77; PULSE 76; RESP 25; TEMP 37.1; O2SAT 94
== END 2024-07-24 16:00 | disposition home or self-care (01) ==
PROVIDERS: Nurse Practitioner Family; Admitting Provider Internal Medicine Cardiovascular Disease; PCP Nurse Practitioner Family; Visit Provider Internal Medicine Cardiovascular Disease
DX: I12.9 Hypertensive chronic kidney disease with stage 1 through stage 4 chronic kidney disease, or unspecified chronic kidney disease (principal); E11.22 Type 2 diabetes mellitus with diabetic chronic kidney disease; E11.65 Type 2 diabetes mellitus with hyperglycemia; E11.621 Type 2 diabetes mellitus with foot ulcer; N18.4 Chronic kidney disease, stage 4 (severe); I70.222 Atherosclerosis of native arteries of extremities with rest pain, left leg; E86.0 Dehydration; Z79.82 Long term (current) use of aspirin; Z79.4 Long term (current) use of insulin; E78.5 Hyperlipidemia, unspecified; Z83.3 Family history of diabetes mellitus; Z82.49 Family history of ischemic heart disease and other diseases of the circulatory system; Z87.891 Personal history of nicotine dependence; I77.1 Stricture of artery; L97.529 Non-pressure chronic ulcer of other part of left foot with unspecified severity; Z98.890 Other specified postprocedural states; N17.9 Acute kidney failure, unspecified
CPT/HCPCS: 36415; 36416; 37224; 75625; 75716; 80048; 82962; 85025; 85347; 85610; 85730; 96372; 96374; 96376; 99152; 99153; C1725; C1769; C1887; C1894; G0378; G0379; J1644; J1815; J2250; J3010; J3490; J7030; J9999; Q0163; Q9967

== ENCOUNTER → 2024-08-04 11:27 | Outpatient (BNVA) | payer MEDICAID, SELFPAY | PROVIDERS: PCP Nurse Practitioner Family; Visit Provider Nurse Practitioner Family | DX: E11.65 Type 2 diabetes mellitus with hyperglycemia (principal) | CPT/HCPCS: 80053; 80061; 82607; 83036; 84443; 87070; 87075; 87205 ==

== ENCOUNTER 2024-10-04 17:15 | Emergency (ER) | payer MEDICAID, SELFPAY ==
[2024-10-04 17:23] VITALS: BP 123/71; PULSE 91; TEMP 36.7; O2SAT 96; BMI 32.1
--- NOTE | 2024-10-04 17:47 | USR_ITS ---
PROCEDURE INFORMATION: Exam: US Duplex Right Lower Extremity Veins, Limited Exam date and time: 10/04/2024 6:12 PM Age: 63 years old Clinical indication: Pain; Leg, upper and leg, lower; Right TECHNIQUE: Imaging protocol: Real-time duplex ultrasound of the right extremity with 2-D esquivel scale, color Doppler flow and spectral waveform analysis including responses to compression and other maneuvers (when performed) with image documentation. Limited exam was focused on the right lower extremity veins. COMPARISON: CT angio abd aorta runof [id number] 06/11/2024 9:43 AM FINDINGS: Right deep veins: Unremarkable. The common femoral, femoral, proximal profunda femoral and popliteal veins are patent without thrombus. Normal Doppler waveforms. Normal compressibility and/or augmentation response. Superficial veins: Greater saphenous vein at the saphenofemoral junction is patent without thrombus. Soft tissues: Unremarkable. US/[place] [id number] IMPRESSION: No evidence of deep vein thrombosis.
--- NOTE | 2024-10-04 19:00 | W.ED.EXTPRO ---
HPI - Extremity Problem General: Chief complaint: Extremity Problem,Nontraumatic Stated complaint: R leg pain Time Seen by Provider: 10/04/24 17:29 History of Present Illness: 63 yo female patient presents to ER with c/o right leg pain. Pt states its the entire leg with pain directly in the calf. Pt denies any injury or trauma. Pt states it has progressed over the last few days. Pt denies any hx of blood clots. Pt denies any chest pain or SOB. Related Data Home Medications ?Medication ?Instructions ?Recorded ?Confirmed aspirin 81 mg tablet,delayed 81 mg PO DAILY 05/20/19 08/11/24 release acetaminophen 500 mg capsule 500 mg PO Q6H PRN Pain 12/04/21 08/11/24 bupropion HCl 150 mg 24 hr tablet, 150 mg PO QAM 07/11/24 08/11/24 extended release dapagliflozin propanediol 10 mg 10 mg PO QAM 07/11/24 08/11/24 tablet loratadine 10 mg tablet 10 mg PO DAILY 07/11/24 08/11/24 Previous Rx's ?Medication ?Instructions ?Recorded mecobalamin (vitamin B12) 1,000 See Rx Instructions .Route 03/04/24 mcg disintegrating .COMPLEX #90 tabs tablet,sublingual amlodipine 5 mg tablet 5 mg PO DAILY #30 tabs 07/24/24 rivaroxaban 2.5 mg tablet 2.5 mg PO BID #60 tabs 07/24/24 insulin glargine 100 unit/mL (3 45 unit (0.45 mL) SUBCUT BID #3 mL 07/28/24 mL) subcutaneous pen (Lantus Solostar U-100 Insulin) metoprolol tartrate 50 mg tablet 75 mg (1.5 x 50 mg) PO BID #270 08/04/24 tabs doxycycline hyclate 100 mg capsule 100 mg PO BID #20 caps 08/09/24 dulaglutide 0.75 mg/0.5 mL See Rx Instructions .Route 08/31/24 subcutaneous pen injector .COMPLEX #2 mL (Trulicity) allopurinol 300 mg tablet See Rx Instructions .Route 09/01/24 .COMPLEX #180 tabs atorvastatin 40 mg tablet See Rx Instructions .Route 09/01/24 .COMPLEX #30 tabs glipizide 10 mg tablet, extended See Rx Instructions .Route 09/30/24 release 24 hr .COMPLEX #90 tabs gabapentin 100 mg capsule 100 mg PO Q8H #30 caps 10/04/24 Allergies Allergy/AdvReac Type Severity Reaction Status Date / Time Cephalosporins Allergy Unknown Verified 10/04/24 17:28 hydrochlorothiazide Allergy ALGY-Rash Verified 10/04/24 17:28 Review of Systems General: Reports: 10 or more systems reviewed and unremarkable except in HPI and below PFSH ED PFSH: Medical History Diabetes Gout Current use of insulin Poor compliance Stage 4 chronic kidney disease Anxiety state Uncontrolled type 2 diabetes mellitus with hyperglycemia Hyperlipidemia Hypertension Surgical History History of amputation of finger History of cholecystectomy Family History Mother Anesthesia complication Diabetes Lung disease Father Clotting disorder Diabetes Stroke Sister CAD (coronary artery disease) later in life Cancer Diabetes Lung disease Stroke Brother CAD (coronary artery disease) Chronic kidney disease (CKD) Diabetes Other Hypertension Denies family history of Dementia Suicide Bleeding disorder Social History Smoking and tobacco/nicotine status: former use of tobacco/nicotine Quit status (tobacco/nicotine): has quit using Year quit tobacco: over 20 years ago Second hand smoke exposure: No Alcohol intake: never Substance/Drug Use: never Caregiver/support person: Yes Lives independently: Yes Household members: spouse Marital status: service: No Current occupational status: disabled Current gender identity: Female Special luca needs: No Physical Exam Const: COMMON NORMALS: no acute distress, patient oriented x3, healthy appearing and well nourished GENERAL APPEARANCE: cooperative, comfortable, well kempt and well developed; not ill appearing ORIENTATION/CONSCIOUSNESS: Yes awake Resp: COMMON NORMALS: normal respiratory effort, No retractions and No use of accessory muscles Cardio: COMMON NORMALS: regular rate and regular rhythm RATE: regular rate RHYTHM: regular rhythm : COMMON NORMALS: Yes no CVA tenderness, Yes normal external appearance, Yes normal appearance of the vagina, Yes normal appearance of the cervix, Yes normal bimanual exam, Yes No adnexal tenderness and Yes no masses BLADDER/KIDNEY EXAM: Yes no CVA tenderness BIMANUAL EXAM - VAGINA & UTERUS: Yes normal bimanual exam Back/Pelvis: COMMON NORMALS: no CVA tenderness, thoracic and lumbar spine normal to inspection, no thoracic nor lumbar tenderness and thoraco-lumbar ROM normal Extremity: COMMON NORMALS: normal to inspection, full ROM and capillary refill normal GENERAL: Yes normal exam except as noted Neuro: COMMON NORMALS: patient oriented x3, CN's II-XII intact bilaterally, moves all extremities, no focal motor deficits, no sensory deficits noted, deep tendon reflexes 2+ bilaterally and gait normal Psych: COMMON NORMALS: mental status grossly normal, Normal thought process present, cooperative, normal affect, speech normal, activity/motor behavior normal, denies hallucinations, denies homicidal ideation and denies suicidal ideation APPEARANCE: Yes grossly normal and Yes well kempt ATTITUDE: Yes calm ACTIVITY/MOTOR BEHAVIOR: Yes appropriate eye contact SPEECH: Yes normal speech THOUGHT PROCESS: Normal thought process present THOUGHT CONTENT: Yes Normal thought content present ATTENTION/CONCENTRATION: Yes attention grossly intact MEMORY/COGNITION: Yes memory grossly intact INSIGHT: Good insight present (Psych) JUDGEMENT: Good judgement present (Psych) Skin: COMMON NORMALS: no rashes or lesions noted, no wounds, turgor normal, no jaundice, no petechiae and no mottling GENERAL SKIN EXAM: no rashes or lesions noted and turgor normal Course Vital Signs: Vital signs: Vital Signs Temperature 98.0 F 10/04/24 17:23 Pulse Rate 91 10/04/24 17:23 Blood Pressure 123/71 10/04/24 17:23 Pulse Oximetry 96 10/04/24 17:23 Oxygen Delivery Me thod Room Air 10/04/24 17:23 MDM - Extremity (Nontraumatic) Medical Decision Making Patient is well appearing non toxic and in no acute distress. 63 yo female patient presents to ER with c/o right leg pain. Pt states its the entire leg with pain directly in the calf. Pt denies any injury or trauma. Pt states it has progressed over the last few days. Pt denies any hx of blood clots. Pt denies any chest pain or SOB. Pt is NVI distally. US is negative for DVT. Pt findings are c/w sciatica. Pt has no loss of bowel or bladder. Pt is afebrile. Pt is Diabetic with uncontrolled blood glucose levels so will not treat with steroids. Will prescribe gabapentin at this time as well as home stretching exercises. Lab Data Radiology Impressions Venous Duplex 10/04/24 17:47 IMPRESSION: No evidence of deep vein thrombosis. All radiology interpretation(s) finalized by discharge Discharge Plan Discharge Patient Disposition: Home Clinical Impression: Sciatic leg pain Condition: Stable Prescriptions: New gabapentin 100 mg capsule 100 mg PO Q8H Qty: 30 0RF No Action aspirin 81 mg tablet,delayed release (DR/EC) 81 mg PO DAILY acetaminophen 500 mg capsule 500 mg PO Q6H PRN (Reason: Pain) mecobalamin (vitamin B12) 1,000 mcg tablet,disintegrating See Rx Instructions .ROUTE .COMPLEX Qty: 90 1RF Dose Instruction: place tablet UNDER TONGUE and allow TO dissolve FOR at least 30 seconds before swallowing take ONCE daily Rx Instructions: place tablet UNDER TONGUE and allow TO dissolve FOR at least 30 seconds before swallowing take ONCE daily insulin glargine [Lantus Solostar U-100 Insulin] 100 unit/mL (3 mL) insulin pen 45 unit SUBCUT BID Qty: 3 0RF Rx Instructions: INJECT 45 UNITS SUBCUTANEOUSLY TWICE DAILY metoprolol tartrate 50 mg tablet 75 mg PO BID Qty: 270 3RF doxycycline hyclate 100 mg capsule 100 mg PO BID Qty: 20 0RF Trulicity 0.75 mg/0.5 mL pen injector See Rx Instructions .ROUTE .COMPLEX Qty: 2 2RF Dose Instruction: inject 0.75 MG (0.5 ML) SUBCUTANEOUSLY ONCE WEEKLY Rx Instructions: inject 0.75 MG (0.5 ML) SUBCUTANEOUSLY ONCE WEEKLY atorvastatin 40 mg tablet See Rx Instructions .ROUTE .COMPLEX Qty: 30 2RF Dose Instruction: TAKE 1 TABLET BY MOUTH DAILY Rx Instructions: TAKE 1 TABLET BY MOUTH DAILY allopurinol 300 mg tablet See Rx Instructions .ROUTE .COMPLEX Qty: 180 2RF Dose Instruction: TAKE ONE TABLET BY MOUTH TWICE DAILY Rx Instructions: TAKE ONE TABLET BY MOUTH TWICE DAILY glipizide 10 mg tablet extended release 24hr See Rx Instructions .ROUTE .COMPLEX Qty: 90 0RF Dose Instruction: TAKE ONE TABLET BY MOUTH EVERY DAY Rx Instructions: TAKE ONE TABLET BY MOUTH EVERY DAY loratadine 10 mg tablet 10 mg PO DAILY Rx Instructions: TAKE ONE TABLET BY MOUTH EVERY DAY bupropion HCl 150 mg tablet extended release 24 hr 150 mg PO QAM Rx Instructions: TAKE ONE TABLET BY MOUTH EVERY MORNING dapagliflozin propanediol 10 mg tablet 10 mg PO QAM Rx Instructions: TAKE ONE TABLET BY MOUTH EVERY MORNING amlodipine 5 mg tablet 5 mg PO DAILY Qty: 30 3RF rivaroxaban 2.5 mg tablet 2.5 mg PO BID Qty: 60 4RF Discharge Orders: Discharge ED (Routine); Ordered 10/04/24 Ordered By: Lola Hui Referrals: Vinita Mcdonough, TEACH[facility] ASSISTANT [Primary Care Provider, Family Practice] Discharge Diet: Advance as tolerated Discharge Activity: Increase activity as tolerated Patient Instructions: Opioid Safety, Pain Management, Sciatica Activity Restrictions/Additional Instructions: Please perform stretches as discussed Please take meds as needed Please follow up with PCP Return to ER if decreased feeling or weakness in one or both legs symptoms that get worse sudden increase in pain Print Language: Bengali Coding Level of Care Code ED Inserter for Raza Sen
[2024-10-04] MEDS: gabapentin 100 mg Capsule PO (19:16)
[2024-10-04 19:17] VITALS: BP 103/66; PULSE 92; O2SAT 95
== END 2024-10-04 19:21 | disposition home or self-care (01) ==
PROVIDERS: Emergency Provider Registered Nurse; PCP Nurse Practitioner Family
DX: M54.31 Sciatica, right side (principal)
CPT/HCPCS: 93971; 99284; J9999

== ENCOUNTER → 2024-11-17 12:41 | Outpatient (BNVA) | payer MEDICAID, SELFPAY | PROVIDERS: PCP Nurse Practitioner Family; Visit Provider Nurse Practitioner Family | DX: E11.65 Type 2 diabetes mellitus with hyperglycemia (principal) | CPT/HCPCS: 80053; 80061; 82607; 83036; 84443; 85025; 87070 ==

== ENCOUNTER → 2025-01-18 14:29 | Outpatient (BNVA) | payer MEDICAID, SELFPAY | PROVIDERS: PCP Nurse Practitioner Family; Visit Provider Nurse Practitioner Family | DX: N18.32 Chronic kidney disease, stage 3b (principal) | CPT/HCPCS: 80069; 82043; 82306; 82310; 83735; 83970; 85007; 85027 ==